=== PATIENT | male | born 1940 | race Caucasian/White ===

== ENCOUNTER 2021-01-02 16:02 | Outpatient (CLI) | payer MEDICARE, SELFPAY | END 2021-01-02 16:03 | disposition home or self-care (01) | LOC: ANHCOVIDVC 16:02 | PROVIDERS: PCP Family Medicine | DX: Z23 Encounter for immunization (principal) | CPT/HCPCS: 0001A; 91300 ==

== ENCOUNTER 2021-01-23 16:04 | Outpatient (CLI) | payer MEDICARE, SELFPAY | END 2021-01-23 16:05 | disposition home or self-care (01) | LOC: ANHCOVIDVC 16:04 | PROVIDERS: PCP Family Medicine | DX: Z23 Encounter for immunization (principal) | CPT/HCPCS: 0002A; 91300 ==

== ENCOUNTER → 2022-07-09 10:40 | Outpatient (CLI) | payer MEDICARE, SELFPAY ==
--- NOTE | ~2022-07-09 | XR_ITS ---
XR lumbar spine min 4V DATE: 07/09/2022 10:55 INDICATION: Low back pain TECHNIQUE: AP, lateral, coned lateral lumbosacral and bilateral oblique views COMPARISON: None FINDINGS: There is multi-level degenerative disc disease, mild at L1-2, moderately severe at L2-3, L3 -4 and L4-5. L5-S1 disc space is well preserved. There is degenerative change at the apophyseal joints. No fracture or spondylolisthesis or bone destruction. The pedicles and sacroiliac joints are intact. Surgical clips, right upper quadrant, consistent with cholelithiasis. IMPRESSION: Lumbar spondylosis Reviewed, dictated and finalized at location B. IMPRESSION: Lumbar spondylosis
== END ==
PROVIDERS: PCP Family Medicine; Visit Provider Family Medicine
DX: M47.817 Spondylosis without myelopathy or radiculopathy, lumbosacral region (principal); E78.5 Hyperlipidemia, unspecified; I10 Essential (primary) hypertension; E53.8 Deficiency of other specified B group vitamins
CPT/HCPCS: 72110

== ENCOUNTER 2022-07-10 08:06 | Outpatient (CLI) | payer MEDICARE, SELFPAY ==
[2022-07-10 20:03] LABS: Basophils Absolute Auto 0.1 K/mm3 (0.0-0.1); Basophils Percent Auto 0.7 % (0.2-1.2); Eosinophils Absolute Auto 0.3 K/mm3 (0-0.3); Eosinophils Percent Auto 3.3 % (0-4.4); Hematocrit 52.9 % (42.0-52.0); Hemoglobin 16.7 g/dL (14.0-18.0); Immature Granulocyte Absolute 0.08 K/mm3 (0.00-0.031); Immature Granulocyte Percent A 0.8 % (0-0.5); Lymphocytes Absolute Auto 2.57 K/mm3 (0.9-3.2); Lymphocytes Percent Auto 26.3 % (18.3-44.2); Mean Corpuscular HGB Conc 31.6 g/dl (32-36); Mean Corpuscular Hemoglobin 31.4 pg (26-34); Mean Corpuscular Volume 99.4 fl (80-100); Mean Platelet Volume 10.3 fl (7.4-10.4); Monocytes Absolute Auto 0.9 K/mm3 (0.1-0.6); Monocytes Percent Auto 8.7 % (2.6-8.5); Neutrophils Absolute Auto 5.9 K/mm3 (1.3-6.7); Neutrophils Percent Auto 60.2 % (45.5-73.1); Platelet Count Result 257 k/mm3 (150-375); Red Blood Count 5.32 M/mm3 (4.6-6.20); White Blood Count 9.8 K/mm3 (4.5-10.0)
[2022-07-10 20:17] LABS: Hemoglobin A1C 5.6 % (<5.7)
[2022-07-10 20:18] LABS: Alanine Aminotransferase 21 U/L (6-50); Albumin Level 4.2 g/dL (3.5-5.1); Alkaline Phosphatase 81 U/L (38-126); Anion Gap 10 mmol/L (8-16); Aspartate Amino Transferase 56 U/L (17-59); Bilirubin,Total 0.8 mg/dL (0.2-1.3); Blood Urea Nitrogen 25 mg/dL (9-20); Calcium 9.1 mg/dL (8.4-10.2); Carbon Dioxide 30 mmol/L (22-30); Chloride 103 mmol/L (98-107); Cholesterol 153 mg/dL (0-200); Estimated Glomerular Filt Rate > 60; Glucose 93 mg/dL (65-110); HDL Direct 27 mg/dL; Potassium 4.5 mmol/L (3.4-5.0); Sodium 143 mmol/L (137-145); Triglycerides 177 mg/dL (<150)
[2022-07-10 20:29] LABS: LDL Cholesterol Direct 93 mg/dL
[2022-07-10 20:41] LABS: Vitamin D 25 Hydroxy 29.6 ng/mL
[2022-07-10 21:04] LABS: Prostate Specific Antigen 3.5 ng/mL (< OR = 4.0)
== END 2022-07-10 08:07 | disposition home or self-care (01) ==
LOC: ANHGOSHLAB 08:10
PROVIDERS: PCP Family Medicine; Visit Provider Family Medicine
DX: Z12.5 Encounter for screening for malignant neoplasm of prostate (principal); E78.5 Hyperlipidemia, unspecified; E53.8 Deficiency of other specified B group vitamins; I10 Essential (primary) hypertension; R73.9 Hyperglycemia, unspecified; E55.9 Vitamin D deficiency, unspecified; Z00.00 Encounter for general adult medical examination without abnormal findings
CPT/HCPCS: 36415; 80053; 80061; 82306; 82607; 83036; 84153; 84443; 85025; G0103

== ENCOUNTER 2022-12-11 11:02 | Outpatient (RCR) | payer MEDICARE, SELFPAY | END 2022-12-11 11:04 | disposition home or self-care (01) | LOC: ANHGOSHPT 11:02 | PROVIDERS: PCP Family Medicine; Visit Provider Family Medicine | DX: M54.50 Low back pain, unspecified (principal); G89.29 Other chronic pain | CPT/HCPCS: 99199 ==

== ENCOUNTER 2023-01-07 10:08 | Outpatient (CLI) | payer MEDICARE, SELFPAY ==
[2023-01-07 18:50] LABS: Basophils Absolute Auto 0.1 K/mm3 (0.0-0.1); Basophils Percent Auto 0.6 % (0.2-1.2); Eosinophils Absolute Auto 0.3 K/mm3 (0-0.3); Eosinophils Percent Auto 3.1 % (0-4.4); Hematocrit 51.9 % (42.0-52.0); Hemoglobin 16.6 g/dL (14.0-18.0); Immature Granulocyte Absolute 0.11 K/mm3 (0.00-0.031); Lymphocytes Absolute Auto 3.48 K/mm3 (0.9-3.2); Lymphocytes Percent Auto 31.8 % (18.3-44.2); Mean Corpuscular Hemoglobin 31.4 pg (26-34); Mean Corpuscular Volume 98.1 fl (80-100); Mean Platelet Volume 9.7 fl (7.4-10.4); Monocytes Absolute Auto 0.9 K/mm3 (0.1-0.6); Monocytes Percent Auto 8.3 % (2.6-8.5); Neutrophils Percent Auto 55.2 % (45.5-73.1); Platelet Count Result 282 k/mm3 (150-375); Red Blood Count 5.29 M/mm3 (4.6-6.20); Red Cell Distribution Width 13.5 % (11.5-14.5); White Blood Count 10.9 K/mm3 (4.5-10.0)
[2023-01-07 19:03] LABS: Chloride 105 mmol/L (98-107)
[2023-01-07 19:07] LABS: Alanine Aminotransferase 21 U/L (6-50); Albumin Level 4.4 g/dL (3.5-5.1); Alkaline Phosphatase 81 U/L (38-126); Anion Gap 8 mmol/L (8-16); Aspartate Amino Transferase 23 U/L (17-59); Bilirubin,Total 0.5 mg/dL (0.2-1.3); Blood Urea Nitrogen 29 mg/dL (9-20); Calcium 9.6 mg/dL (8.4-10.2); Carbon Dioxide 30 mmol/L (22-30); Cholesterol 162 mg/dL (0-200); Estimated Glomerular Filt Rate > 60; Glucose 85 mg/dL (65-110); HDL Direct 29 mg/dL; Potassium 4.1 mmol/L (3.4-5.0); Sodium 143 mmol/L (137-145); Triglycerides 168 mg/dL (<150)
[2023-01-07 19:15] LABS: LDL Cholesterol Direct 97 mg/dL
== END 2023-01-07 10:09 | disposition home or self-care (01) ==
LOC: ANHGOSHLAB 10:10
PROVIDERS: PCP Family Medicine; Visit Provider Nurse Practitioner Family
DX: E78.5 Hyperlipidemia, unspecified (principal); I10 Essential (primary) hypertension
CPT/HCPCS: 36415; 80053; 80061; 85025

== ENCOUNTER 2023-04-18 07:52 | Outpatient (CLI) | payer MEDICARE, SELFPAY ==
[2023-04-18 08:35] LABS: Anion Gap 7 mmol/L (8-16); Blood Urea Nitrogen 26 mg/dL (9-20); Calcium 8.7 mg/dL (8.4-10.2); Carbon Dioxide 30 mmol/L (22-30); Chloride 104 mmol/L (98-107); Estimated Glomerular Filt Rate > 60; Glucose 119 mg/dL (65-110); Potassium 3.9 mmol/L (3.4-5.0); Sodium 141 mmol/L (137-145)
== END 2023-04-18 07:53 | disposition home or self-care (01) ==
PROVIDERS: Anesthesiology; PCP Family Medicine; Visit Provider Plastic Surgery
DX: Z01.812 Encounter for preprocedural laboratory examination (principal); I10 Essential (primary) hypertension
CPT/HCPCS: 36415; 80048

== ENCOUNTER 2023-04-24 03:28 | Day surgery (SDC) | payer MEDICARE, SELFPAY ==
--- NOTE | 2023-04-16 10:00 | PC.NURSE ---
Report to the Outpatient Waiting Room, entrance under the green pavilion located off [facility], at time _0600 on date _04/24/23 . Planned Procedure Time: _0730 . Time changes happen often and if your time is changed the preop area will call you the afternoon before. - You and your visitor will be asked to self-screen and do not enter if you have any COVID symptoms. - A mask is optional within the hospital at this time. Patients may have clear liquids (water, carbonated beverages, clear teas, apple juice) until 3 hours prior to surgery with a maximum of 20 ounces. - No food from midnight until time of surgery - Infants may have breast milk until 4 hours before surgery, formula 6 hours prior to surgery. - Children will be allowed to drink immediately following surgery. If applicable, please bring a bottle or sippy cup to assist with drinking. Juice, water, soda, and popsicles are readily available. For infants on formula, please bring formula the day of surgery. Pacifiers are allowed. Take the following medications with a SIP of water the morning of surgery: ____AMLODIPINE DO NOT STOP ANY OF YOUR OTHER PRESCRIPTION MEDICATIONS PRIOR TO SURGERY ?EXCEPT THE FOLLOWING Medications to discontinue per physician ____MULTIVITAMIN HOLD 3 DAYS PRE OP 04/21/23 Please no make-up, nail djiboutian, hairspray, perfume, deodorant, or body powder the day of surgery. No jewelry (including any body piercings) or valuables the day of surgery, leave them at home. Please take a shower or bath the night before, or the morning of, surgery with an antibacterial soap. Wear comfortable, loose fitting clothing. Children are encouraged to wear pajamas. - Jewelry must be removed prior to entering the operating room. Rings and piercings that are not removed may be cut off. - The hospital will not accept responsibility for valuables. - Please leave all valuables, including medications, at home the day of surgery. If you are going home after surgery, a licensed transit mixer driver must drive you home. - NO public transportation without another adult if you receive anesthesia. - We recommend that an adult stay with you for 24 hours following discharge. - We also recommend that you do not drive, make important decision, drink alcoholic beverages, or take any drugs that were not prescribed by your health care provider for at least 24 hours after your discharge time. For Pediatric surgeries, we recommend two adults accompany the child home. Follow any additional instructions given to you from your surgeon. If you or anyone in your household have experienced Covid symptoms in the past week, please notify your surgeon or the nurse liaison at the phone number below for possible testing. Telephone instructions given to __PT'S MILES and asked if any additional questions and then verbalized understanding. Patient advised to call surgeon office or pre surgery nurse liaison [phone] if any additional questions.
[2023-04-16 10:06] VITALS: BMI 34.0
[2023-04-24 06:00] VITALS: BP 141/69; PULSE 71; RESP 18; TEMP 36.3; O2SAT 95
[2023-04-24] MEDS: LACTATED RINGERS 1,000 ML 30 ML IV CONT (06:35)
--- NOTE | 2023-04-24 07:09 | WPDANESEPPF ---
Anes - Initial Pre Proc Eval Procedure: Operation Date: 04/24/23 07:30 Proposed Procedures p Excision of Ulcerated Neoplasm Right Auricular Sulcus with Frozen Section, Possible Full Thickness Skin Graft - Elías Nelson MD Date/Time: 04/24/23 07:09 Surgeon: Elías Nelson MD Pre Op Diagnosis: Ulc Neoplasm Rt Auricular Sulcus Patient Data Age: 83 Gender: M Height: 1.75 m Weight: 104.35 kg Last Vital Signs Temp 97.3 F L 04/24/23 06:00 Pulse 71 04/24/23 06:00 Resp 18 04/24/23 06:00 BP 141/69 H 04/24/23 06:00 Pulse Ox 95 04/24/23 06:00 O2 Del Method Room Air 04/24/23 06:00 Allergies Allergy/AdvReac Type Severity Reaction Status Date / Time No Known Allergies Allergy Unknown Verified 04/24/23 06:00 Home Medications Medication Instructions Recorded Confirmed Type multivitamin 1 tablet PO DAILY 01/01/22 04/16/23 History enalapril 10 1 tablet PO DAILY #180 tabs 05/27/22 04/16/23 Rx mg-hydrochlorothiazide 25 mg tablet simvastatin 40 mg tablet 40 mg PO QHS #100 tabs 09/02/22 04/16/23 Rx amlodipine 5 mg tablet 5 mg PO DAILY #90 tabs 03/31/23 04/16/23 Rx Patient hx anesthesia problems: none Family hx anesthesia problems: none Results Review: All pre-operative results and documents have been reviewed as part of the pre-operative evaluation. [facility] Past Medical History Medical History BPH w/o urinary obs/LUTS Chronic low back pain Dyslipidemia Essential (primary) hypertension Melanoma of left restorationism (~2010) UGI bleed (~2001) Surgical History Surgical History History of cholecystectomy (~2014) 08/2015 History of incisional hernia repair 01/2017 Family History Family History Mother Patient's mother is in good health Father Patient's father is in good health Other Family history of hypercholesterolemia Hypertension Social History Social History (Updated 01/07/23 @ 09:10 by Soo Hitchcock MA) Smoking packs per day: 1 Smoking cigarettes per day: 20.0 Years smoked: 62 Smoking pack-years: 62.00 Smoking status: Former smoker Tobacco type: cigarettes Second hand tobacco smoke exposure: No Smoking end date: 10/20/17 Alcohol intake: current Alcohol use details: consumes 1 beer rarely Substance use: never Substance use type: does not use Lack of Transportation: No Lack of Food: Never True Current Housing: I Have Housing Concerned About Future Housing: No Difficulty Paying Gas/Electric Bills: No Difficulty Paying for Meds: No Currently Unemployed: No Difficulty w/ Childcare or Family Care: No Living arrangements: with family Occupation/Education: retired Gender identity (if verbalized by the patient): Male Sexual Orientation (if Verbalized by the Patient): Straight or Heterosexual Spiritual care concerns: No Agree to blood products: Yes Anes - Eval Final PreProcedure Day of Procedure 04/24/23 07:09 Patient weight: obese Heart: regular rate and rhythm Lungs: clear to auscultation Airway: Mallampati scale class III Neurological: alert and oriented Last oral intake: >/= 8 hours ASA classification: III Emergent: no Anesthetic plan: proceed Anesthesia type and monitoring: general GIVS and standard monitoring Results Review: All pre-operative results and documents have been reviewed as part of the pre-operative evaluation. Informed Consent: The patient's anesthetic plan and its attendant risks and benefits were discussed with the patient/family/POA. Questions were solicited and answers provided to the satisfaction of the patient/family/POA.
--- NOTE | 2023-04-24 07:11 | WPDHPUPDATE1 ---
History and Physical Update Update Date/Time: 04/24/23 07:11 History and Physical has been reviewed, including an updated exam of the patient. There are NO changes in the patient's condition. Risks, benefits, and alternatives have been discussed and questions answered. Patient agrees to proceed with procedure.
[2023-04-24] MEDS: ceFAZolin SODIUM 1 GM VIAL 2 GM IV PUSH (08:17)
[2023-04-24] MEDS: LIDO 1%/EPINEPHRINE/PF 1:200,000 30 ML VIAL 12 ML XX (08:20)
[2023-04-24 08:55] VITALS: BP 100/78; PULSE 68; RESP 16; TEMP 36.4; O2SAT 95
[2023-04-24 09:25] VITALS: BP 125/53
--- NOTE | 2023-04-24 09:38 | P.OP_ITS ---
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 He was taken to the operating room and placed supine on the operating table. He was given IV sedation with the oxygen mask. Right face and neck were prepped and draped in usual fashion. The right thigh was also prepped in anticipation of a full-thickness graft. Area was carefully examined and infiltrated 1% lidocaine with epinephrine. The incision was made around the ulcerated mass and extended to include some of the underlying cartilage. The ulcerated tissue extended down to the perichondrium. [place] and antihelix cartilage was spared. The specimen was tagged at its 12:00 o'clock most superior aspect with a suture and sent for frozen section. The pathologist revealed the presence of a basal cell carcinoma margins free. Due to the floppy nature of his ears to begin with and the reduced cartilage support I elected to close the wound directly by suturing the wound margins side to side. This preserved the dimensions and appearance of the ear. It did reduce his auricular sulcus but the patient is not generally were glasses. It appears he would be able to support glasses on this ear if needed. The space was closed with through and through 4-0 nylon quilting stitches at several sites across the region of the antihelix. There was no bleeding at the termination of the case an ear cup was applied. The patient had been given 2 g of Ancef at the start of the case. The is discharged home with instructions in wound care and follow-up. He has a prescription for cephalexin 500 mg t.i.d. for 5 days and hydrocodone 5/325 number 6. Estimated Blood Loss 5 Drains No Packing No Pathology Yes Complications No immediate complications Condition Stable Disposition Same day
== END 2023-04-24 09:56 | disposition home or self-care (01) ==
PROVIDERS: PCP Family Medicine; Visit Provider Plastic Surgery
PROC: (CPT 11646; principal; 2023-04-24 07:30)
DX: C44.212 Basal cell carcinoma of skin of right ear and external auricular canal (principal); I10 Essential (primary) hypertension; E78.5 Hyperlipidemia, unspecified; N40.0 Benign prostatic hyperplasia without lower urinary tract symptoms; Z87.891 Personal history of nicotine dependence; E66.9 Obesity, unspecified; Z68.34 Body mass index [BMI] 34.0-34.9, adult
CPT/HCPCS: 11646; 12053; 36415; 80048; 88305; 88331; A9270; J0690; J2704; J7120

== ENCOUNTER 2023-07-29 08:07 | Outpatient (CLI) | payer MEDICARE, SELFPAY ==
[2023-07-29 18:42] LABS: Alanine Aminotransferase 24 U/L (6-50); Albumin Level 4.1 g/dL (3.5-5.1); Alkaline Phosphatase 73 U/L (38-126); Anion Gap 4 mmol/L (8-16); Aspartate Amino Transferase 59 U/L (17-59); Bilirubin,Total 0.6 mg/dL (0.2-1.3); Blood Urea Nitrogen 34 mg/dL (9-20); Calcium 9.2 mg/dL (8.4-10.2); Carbon Dioxide 34 mmol/L (22-30); Chloride 104 mmol/L (98-107); Cholesterol 159 mg/dL (0-200); Estimated Glomerular Filt Rate > 60; Glucose 96 mg/dL (65-110); HDL Direct 28 mg/dL; Potassium 4.5 mmol/L (3.4-5.0); Sodium 142 mmol/L (137-145); Triglycerides 128 mg/dL (<150)
[2023-07-29 18:53] LABS: LDL Cholesterol Direct 97 mg/dL
[2023-07-29 19:10] LABS: Prostate Specific Antigen 3.4 ng/mL (< OR = 4.0)
[2023-07-29 19:39] LABS: Basophils Absolute Auto 0.1 K/mm3 (0.0-0.1); Basophils Percent Auto 0.8 % (0.2-1.2); Eosinophils Absolute Auto 0.4 K/mm3 (0-0.3); Eosinophils Percent Auto 3.3 % (0-4.4); Hematocrit 49.8 % (42.0-52.0); Hemoglobin 16.1 g/dL (14.0-18.0); Immature Granulocyte Absolute 0.11 K/mm3 (0.00-0.031); Lymphocytes Absolute Auto 3.97 K/mm3 (0.9-3.2); Lymphocytes Percent Auto 34.9 % (18.3-44.2); Mean Corpuscular HGB Conc 32.3 g/dl (32-36); Mean Corpuscular Hemoglobin 32.1 pg (26-34); Mean Corpuscular Volume 99.2 fl (80-100); Mean Platelet Volume 9.5 fl (7.4-10.4); Monocytes Absolute Auto 0.9 K/mm3 (0.1-0.6); Monocytes Percent Auto 7.5 % (2.6-8.5); Neutrophils Percent Auto 52.5 % (45.5-73.1); Platelet Count Result 275 k/mm3 (150-375); Red Blood Count 5.02 M/mm3 (4.6-6.20); Red Cell Distribution Width 13.7 % (11.5-14.5); White Blood Count 11.4 K/mm3 (4.5-10.0)
[2023-07-29 19:44] LABS: Vitamin D 25 Hydroxy 39.6 ng/mL
== END 2023-07-29 08:08 | disposition home or self-care (01) ==
PROVIDERS: PCP Family Medicine; Visit Provider Family Medicine
DX: I10 Essential (primary) hypertension (principal); E55.9 Vitamin D deficiency, unspecified; Z12.5 Encounter for screening for malignant neoplasm of prostate; E53.8 Deficiency of other specified B group vitamins; Z00.00 Encounter for general adult medical examination without abnormal findings; E78.5 Hyperlipidemia, unspecified
CPT/HCPCS: 36415; 80053; 80061; 82306; 82607; 84153; 84443; 85025; G0103

== ENCOUNTER 2023-08-06 01:20 | Day surgery (SDC) | payer MEDICARE, SELFPAY ==
--- NOTE | 2023-07-28 09:23 | PC.NURSE ---
Report to the Outpatient Waiting Room, entrance under the green pavilion located off [facility], at time _0600 on date __08/06/23 . Planned Procedure Time: __0730 . Time changes happen often and if your time is changed the preop area will call you the afternoon before. - You and your visitor will be asked to self-screen and do not enter if you have any COVID symptoms. - A mask is optional within the hospital at this time. Patients may have clear liquids (water, carbonated beverages, clear teas, apple juice) until 3 hours prior to surgery with a maximum of 20 ounces. - No food from midnight until time of surgery - Infants may have breast milk until 4 hours before surgery, infant formula 6 hours prior to surgery. - Children will be allowed to drink immediately following surgery. If applicable, please bring a bottle or sippy cup to assist with drinking. Juice, water, soda, and popsicles are readily available. For infants on formula, please bring formula the day of surgery. Pacifiers are allowed. Take the following medications with a SIP of water the morning of surgery: ____AMLODIPINE DO NOT STOP ANY OF YOUR OTHER PRESCRIPTION MEDICATIONS PRIOR TO SURGERY ?EXCEPT THE FOLLOWING Medications to discontinue per physician __ALL VITAMINS AND SUPPLEMENTS 3 DAYS PRE OP.LAST DOSE 08/02/23 Please no make-up, nail malay, hairspray, perfume, deodorant, or body powder the day of surgery. No jewelry (including any body piercings) or valuables the day of surgery, leave them at home. Please take a shower or bath the night before, or the morning of, surgery with an antibacterial soap. Wear comfortable, loose fitting clothing. Children are encouraged to wear pajamas. - Jewelry must be removed prior to entering the operating room. Rings and piercings that are not removed may be cut off. - The hospital will not accept responsibility for valuables. - Please leave all valuables, including medications, at home the day of surgery. If you are going home after surgery, a licensed xm1 tank driver must drive you home. - NO public transportation without another adult if you receive anesthesia. - We recommend that an adult stay with you for 24 hours following discharge. - We also recommend that you do not drive, make important decision, drink alcoholic beverages, or take any drugs that were not prescribed by your health care provider for at least 24 hours after your discharge time. For Pediatric surgeries, we recommend two adults accompany the child home. Follow any additional instructions given to you from your surgeon. If you or anyone in your household have experienced Covid symptoms in the past week, please notify your surgeon or the nurse liaison at the phone number below for possible testing. Telephone instructions given to __SPOUSE HELEN and asked if any additional questions and then verbalized understanding. Patient advised to call surgeon office or pre surgery nurse liaison [phone] if any additional questions.
[2023-07-28 09:31] VITALS: BMI 34.2
[2023-08-06] MEDS: LACTATED RINGERS 1,000 ML 30 ML IV CONT (07:00)
--- NOTE | 2023-08-06 07:07 | WPDANESEPPF ---
Anes - Initial Pre Proc Eval Procedure: Operation Date: 08/06/23 07:30 Proposed Procedures p Excision Neoplasm Unspecified Behavior Right Nose with Frozen Section, Possible Local Tissue Transfer or Full Thickness Skin Graft - Elías Nelson MD Date/Time: 08/06/23 07:07 Surgeon: Elías Nelson MD Pre Op Diagnosis: neopl unspec behavior right nose Patient Data Age: 83 Gender: M Height: 1.73 m Weight: 102.1 kg Allergies Allergy/AdvReac Type Severity Reaction Status Date / Time No Known Allergies Allergy Unknown Verified 07/28/23 09:16 Home Medications Medication Instructions Recorded Confirmed Type multivitamin 1 tablet PO DAILY 01/01/22 07/28/23 History amlodipine 5 mg tablet 5 mg PO DAILY #90 tabs 03/31/23 07/28/23 Rx enalapril 10 1 tablet PO DAILY #90 tabs 05/13/23 07/28/23 Rx mg-hydrochlorothiazide 25 mg tablet simvastatin 40 mg tablet 40 mg PO QHS #100 tabs 06/10/23 07/28/23 Rx glucosamine sulfate 1,000 mg 1,000 mg PO DAILY 07/15/23 07/28/23 History capsule tumeric 100 mg-livier 150 mg-olive 1 cap PO DAILY 07/15/23 07/28/23 History 50 mg-oreg 150 mg-caprylate capsule sodium,potassium,mag sulfates 17.5 See Rx Instructions PO .COMPLEX 07/30/23 Rx gram-3.13 gram-1.6 gram oral soln #354 mL (Suprep Bowel Prep Kit) Patient hx anesthesia problems: none Family hx anesthesia problems: none Results Review: All pre-operative results and documents have been reviewed as part of the pre-operative evaluation. [facility] Past Medical History Medical History BPH w/o urinary obs/LUTS Chronic low back pain Chronic venous insufficiency of lower extremity Dyslipidemia Essential (primary) hypertension Melanoma of left yazidism (~2010) UGI bleed (~2001) Vitamin D deficiency Surgical History Surgical History History of basal cell carcinoma excision (~04/24/23) excision of basal cell carcinoma of the right auricular sulcus History of cholecystectomy (~2014) 08/2015 History of incisional hernia repair 01/2017 Family History Family History Mother Patient's mother is in good health Father Patient's father is in good health Other Family history of hypercholesterolemia Hypertension Social History Social History Smoking packs per day: 1 Smoking cigarettes per day: 20.0 Years smoked: 62 Smoking pack-years: 62.00 Smoking status: Former smoker Tobacco type: cigarettes Second hand tobacco smoke exposure: No Smoking end date: 10/20/14 Alcohol intake: current Alcohol use details: ONE DRINK PER MONTH Substance use: never Substance use type: does not use Lack of Transportation: No Lack of Food: Never True Current Housing: I Have Housing Concerned About Future Housing: No Difficulty Paying Gas/Electric Bills: No Difficulty Paying for Meds: No Currently Unemployed: No Difficulty w/ Childcare or Family Care: No Living arrangements: with family Occupation/Education: retired Gender identity (if verbalized by the patient): Male Sexual Orientation (if Verbalized by the Patient): Straight or Heterosexual Spiritual care concerns: No Agree to blood products: Yes Anes - Eval Final PreProcedure Day of Procedure 08/06/23 07:07 Patient weight: obese Heart: regular rate and rhythm Lungs: clear to auscultation Airway: Mallampati scale class II Neurological: alert and oriented Last oral intake: >/= 8 hours ASA classification: III Emergent: no Anesthetic plan: proceed Anesthesia type and monitoring: general GIVS and standard monitoring Results Review: All pre-operative results and documents have been reviewed as part of the pre-operative evaluation. Informed Consent: The patient's anesthetic kimberley
--- NOTE | 2023-08-06 07:13 | WPDHPUPDATE1 ---
History and Physical Update Update Date/Time: 08/06/23 07:13 History and Physical has been reviewed, including an updated exam of the patient. There are NO changes in the patient's condition. Risks, benefits, and alternatives have been discussed and questions answered. Patient agrees to proceed with procedure.
[2023-08-06 07:25] VITALS: BP 147/58; PULSE 76; RESP 14; TEMP 36.3; O2SAT 94
[2023-08-06] MEDS: LIDO 1%/EPINEPHRINE 1:100,000 50 ML VIAL 8 ML INFILTRATE (07:30)
[2023-08-06] MEDS: BACITRACIN OINTMENT 15 GM TUBE 1 APPLIC TOPICAL (07:30)
[2023-08-06] MEDS: ceFAZolin 2 GM/D5W 50 ML 2 GM/50 ML BAG IVPB (07:30)
[2023-08-06 09:06] VITALS: BP 127/64; PULSE 69; RESP 14; O2SAT 100
[2023-08-06 09:20] VITALS: BP 146/69; PULSE 73; RESP 14; O2SAT 100
--- NOTE | 2023-08-06 09:32 | W.PM.PROC2 ---
Procedure Note - Detailed Date of Procedure 08/06/23 Pre-op Diagnosis neopl unspec behavior right nose Post-op Diagnosis Other (BCC or right side of nose at the ala. Neoplasm of unspecified behavior R anterior cheek.) Procedure Performed 1 cm excision of basal cell carcinoma of the right nasal ala with frozen section and local tissue transfer 40 sq cm. 1 cm excision of neoplasm of the right anterior cheek with simple repair 1.5 cm Surgeon Elías Nelson MD Anesthesia MAC Description of Procedure The ulcerated lucent neoplasm of the right nasal ala was marked on the patient with his consent in the holding area. His asked if I could just take off everything else on his face. I did look at a site on the right anterior cheek which was red, ulcerated and approximately 4 mm in diameter. The patient couldn't recall how long it had been there. I thought it seemed inflammatory we would leave it alone. The patient was then taken to the operating room placed supine on the operating table. He was given sedation anesthesia with an LMA.. The entire face and upper chest were prepped and draped in the usual fashion. The time-out was held and confirmed. The neoplasm on the right nasal ala was carefully marked with a pen for excision. This area was widely infiltrated with 1% lidocaine with epinephrine. The full-thickness skin ellipse was incised down to include a thin layer of fat. It was then carefully taken off at that level which did not expose ala cartilage. A suture was placed at the most inferior margin near the ala rim for to orient the pathologist. It was sent for frozen section. The pathologist reported the diagnosis of basal cell carcinoma with all margins free. In the interim, while awaiting this report, I examined the lesion on the right and to cheek and this had the appearance of being a basal cell carcinoma under are bright lights and under loupe magnification and had a sign the elevation to a and ulceration. We elected to go ahead to excise this. Was initially closed with simple 5 0 nylon. The stitches were eventually removed as the site fell into the region of local tissue transfer for the lesion on the nose.. A superiorly based triangular flap was incised and elevated. To allow satisfactory rotation of that flap a 2nd opposing triangular flap was elevated. The 2nd flap made use of the prior incision where the neoplasm of unspecified behavior was removed. The smaller specimen was sent for permanent section. The local tissue transfer was adequately undermined and rotated and inset. The skin was closed with interrupted 5 0 nylon. There was no significant distortion of the lower lid or the nasal ala. the patient was discharged from the operating room in stable condition. Prescriptions are being sent for cephalexin 15. And tramadol 10.. has instructions in wound care and follow-up. Estimated Blood Loss 10 Drains No Packing No Pathology Yes Complications No immediate complications Condition Stable Disposition PACU
[2023-08-06 09:45] VITALS: BP 132/60; PULSE 72; RESP 16; O2SAT 98
[2023-08-06 10:06] VITALS: BP 139/55; PULSE 71; RESP 16
== END 2023-08-06 10:17 | disposition home or self-care (01) ==
PROVIDERS: PCP Family Medicine; Visit Provider Plastic Surgery
PROC: (CPT 14060; principal; 2023-08-06 07:30)
DX: C44.311 Basal cell carcinoma of skin of nose (principal); C44.319 Basal cell carcinoma of skin of other parts of face; I10 Essential (primary) hypertension; E78.5 Hyperlipidemia, unspecified; E55.9 Vitamin D deficiency, unspecified; N40.0 Benign prostatic hyperplasia without lower urinary tract symptoms; M54.9 Dorsalgia, unspecified; G89.29 Other chronic pain; Z87.891 Personal history of nicotine dependence; E66.9 Obesity, unspecified; Z68.34 Body mass index [BMI] 34.0-34.9, adult
CPT/HCPCS: 14060; 11641; 88305; 88331; A9270; J0690; J2371; J2405; J2704; J3010; J7120

== ENCOUNTER 2023-10-02 05:50 | Day surgery (SDC) | payer MEDICARE, SELFPAY ==
[2023-07-30 11:16] VITALS: BMI 34.2
[2023-10-02 06:15] VITALS: BP 146/59; PULSE 88; RESP 16; TEMP 36.4; O2SAT 96
[2023-10-02] MEDS: LACTATED RINGERS 1,000 ML 150 ML IV CONT (06:27)
--- NOTE | 2023-10-02 07:19 | WPDANESEPPF ---
Anes - Initial Pre Proc Eval Procedure: Operation Date: 10/02/23 07:30 Proposed Procedures p Diagnostic Colonoscopy - Jerry Kam MD Date/Time: 10/02/23 07:19 Surgeon: Jerry Kam MD Pre Op Diagnosis: Other Fecal Abnormalities Patient Data Age: 83 Gender: M Height: 1.73 m Weight: 104.3 kg Last Vital Signs Temp 36.4 C 10/02/23 06:15 Pulse 88 10/02/23 06:15 Resp 16 10/02/23 06:15 BP 146/59 H 10/02/23 06:15 Pulse Ox 96 10/02/23 06:15 O2 Del Method Room Air 10/02/23 06:15 Allergies Allergy/AdvReac Type Severity Reaction Status Date / Time No Known Allergies Allergy Unknown Verified 10/02/23 06:17 Home Medications Medication Instructions Recorded Confirmed Type multivitamin 1 tablet PO DAILY 01/01/22 10/02/23 History amlodipine 5 mg tablet 5 mg PO DAILY #90 tabs 03/31/23 10/02/23 Rx enalapril 10 1 tablet PO DAILY #90 tabs 05/13/23 10/02/23 Rx mg-hydrochlorothiazide 25 mg tablet simvastatin 40 mg tablet 40 mg PO QHS #100 tabs 06/10/23 10/02/23 Rx glucosamine sulfate 1,000 mg 1,000 mg PO DAILY 07/15/23 10/02/23 History capsule tumeric 100 mg-livier 150 mg-olive 1 cap PO DAILY 07/15/23 10/02/23 History 50 mg-oreg 150 mg-caprylate capsule tramadol 50 mg tablet 50 - 100 mg PO Q6H PRN pain #10 08/06/23 10/02/23 Rx tabs Patient hx anesthesia problems: none Family hx anesthesia problems: none Results Review: All pre-operative results and documents have been reviewed as part of the pre-operative evaluation. [facility] Past Medical History Medical History BPH w/o urinary obs/LUTS Chronic low back pain Chronic venous insufficiency of lower extremity Dyslipidemia Essential (primary) hypertension Melanoma of left adventist (~2010) UGI bleed (~2001) Vitamin D deficiency Surgical History Surgical History History of basal cell carcinoma excision (~04/24/23) excision of basal cell carcinoma of the right auricular sulcus History of cholecystectomy (~2014) 08/2015 History of incisional hernia repair 01/2017 Family History Family History Mother Patient's mother is in good health Father Patient's father is in good health Other Family history of hypercholesterolemia Hypertension Social History Social History Smoking packs per day: 1 Smoking cigarettes per day: 20.0 Years smoked: 62 Smoking pack-years: 62.00 Smoking status: Former smoker Tobacco type: cigarettes Second hand tobacco smoke exposure: No Smoking end date: 10/20/14 Additional smoking assessment comments: quit 5 years ago Alcohol intake: current Alcohol use details: ONE DRINK PER MONTH Substance use: never Substance use type: does not use Lack of Transportation: No Lack of Food: Never True Current Housing: I Have Housing Concerned About Future Housing: No Difficulty Paying Gas/Electric Bills: No Difficulty Paying for Meds: No Currently Unemployed: No Difficulty w/ Childcare or Family Care: No Living arrangements: with family Occupation/Education: retired Gender identity (if verbalized by the patient): Male Sexual Orientation (if Verbalized by the Patient): Straight or Heterosexual Spiritual care concerns: No Agree to blood products: Yes Anes - Eval Final PreProcedure Day of Procedure 10/02/23 07:19 Patient weight: obese Heart: regular rate and rhythm Lungs: clear to auscultation Airway: Mallampati scale class II and other (edentulous) Neurological: alert and oriented Last oral intake: >/= 8 hours ASA classification: III Emergent: no Anesthetic plan: proceed Anesthesia type and monitoring: general GIVS and standard monitoring Results Review: All pre-operative results and documents have been revi
--- NOTE | 2023-10-02 07:29 | PM.HPGS ---
History of Present Illness History of Present Illness Consent: Risks, benefits, and alternatives have been discussed and questions answered. Patient agrees to proceed with procedure. Chief complaint: positive cologuard test Narrative: Justin Wilson is a 83 year old male Presents for screening colonoscopy. Patient found to have positive Cologuard test. Patient presents today for screening colonoscopy. The patient reports that his current weight appetite and bowel movements are normal. Patient denies abdominal pain. Family history is noncontributory. Review of Systems Review of Systems: Review of Systems noncontributory. [facility] Past Medical History Medical History BPH w/o urinary obs/LUTS Chronic low back pain Chronic venous insufficiency of lower extremity Dyslipidemia Essential (primary) hypertension Melanoma of left voodoo (~2010) UGI bleed (~2001) Vitamin D deficiency Surgical History Surgical History History of basal cell carcinoma excision (~04/24/23) excision of basal cell carcinoma of the right auricular sulcus History of cholecystectomy (~2014) 08/2015 History of incisional hernia repair 01/2017 Family History Family History Mother Patient's mother is in good health Father Patient's father is in good health Other Family history of hypercholesterolemia Hypertension Social History Social History Smoking packs per day: 1 Smoking cigarettes per day: 20.0 Years smoked: 62 Smoking pack-years: 62.00 Smoking status: Former smoker Tobacco type: cigarettes Second hand tobacco smoke exposure: No Smoking end date: 10/20/14 Additional smoking assessment comments: quit 5 years ago Alcohol intake: current Alcohol use details: ONE DRINK PER MONTH Substance use: never Substance use type: does not use Lack of Transportation: No Lack of Food: Never True Current Housing: I Have Housing Concerned About Future Housing: No Difficulty Paying Gas/Electric Bills: No Difficulty Paying for Meds: No Currently Unemployed: No Difficulty w/ Childcare or Family Care: No Living arrangements: with family Occupation/Education: retired Gender identity (if verbalized by the patient): Male Sexual Orientation (if Verbalized by the Patient): Straight or Heterosexual Spiritual care concerns: No Agree to blood products: Yes Meds Home Medications and Allergies Home Medications Medication Instructions Recorded Confirmed Type multivitamin 1 tablet PO DAILY 01/01/22 10/02/23 History amlodipine 5 mg tablet 5 mg PO DAILY #90 tabs 03/31/23 10/02/23 Rx enalapril 10 1 tablet PO DAILY #90 tabs 05/13/23 10/02/23 Rx mg-hydrochlorothiazide 25 mg tablet simvastatin 40 mg tablet 40 mg PO QHS #100 tabs 06/10/23 10/02/23 Rx glucosamine sulfate 1,000 mg 1,000 mg PO DAILY 07/15/23 10/02/23 History capsule tumeric 100 mg-livier 150 mg-olive 1 cap PO DAILY 07/15/23 10/02/23 History 50 mg-oreg 150 mg-caprylate capsule tramadol 50 mg tablet 50 - 100 mg PO Q6H PRN pain #10 08/06/23 10/02/23 Rx tabs Allergies Allergy/AdvReac Type Severity Reaction Status Date / Time No Known Allergies Allergy Unknown Verified 10/02/23 06:17 Vital Signs Vital Signs - 24 hr 10/02/23 06:15 Temperature 97.6 F Pulse Rate 88 Respiratory Rate 16 Blood Pressure 146/59 H Pulse Oximetry 96 Oxygen Delivery Room Air Exam Narrative: physical exam reveals patient to be alert. Vital signs stable. HEENT exam is unremarkable. Patient is anicteric. Lungs are clear to auscultation and percussion. Heart is without murmur or extra sounds. Abdomen bowel sounds are present soft nontender , no hepatomegaly. Digital external rectal exam is n
[2023-10-02] MEDS: SIMETHICONE ORAL SUSPENSION 20 MG/0.3 ML 30 ML BOTTLE 0.6 ML IRRIGATION (07:47)
[2023-10-02 08:08] VITALS: BP 102/59; PULSE 71; RESP 16; O2SAT 94
[2023-10-02 08:18] VITALS: BP 110/62; PULSE 70; RESP 18; O2SAT 98
[2023-10-02 08:28] VITALS: BP 127/59; PULSE 71; RESP 20; O2SAT 98
--- NOTE | 2023-10-02 08:32 | WPDANESPN ---
Anes - Prog Note Post-Op Date/Time: 10/02/23 08:32 Cardiovascular status: normal Respiratory status: normal Airway patency: baseline Mental status: baseline Post-Op hydration status: normal Vital Signs: Last Vital Signs Temp 36.4 C 10/02/23 06:15 Pulse 88 10/02/23 06:15 Resp 16 10/02/23 06:15 BP 146/59 H 10/02/23 06:15 Pulse Ox 96 10/02/23 06:15 O2 Del Method Room Air 10/02/23 06:15 Pain Score (VAS): 0/10 I/O: Intake & Output 10/01/23 10/02/23 10/02/23 23:59 07:59 15:59 Intake Total 400 Balance 400 Patient Feedback: Patient satisfied with anesthetic care.
== END 2023-10-02 08:46 | disposition home or self-care (01) ==
PROVIDERS: PCP Family Medicine; Visit Provider Internal Medicine Gastroenterology
PROC: 0DJD8ZZ Inspection of Lower Intestinal Tract, Via Natural or Artificial Opening Endoscopic (ICD-10-PCS; CPT 45378; principal; 2023-10-02 07:30)
DX: R19.5 Other fecal abnormalities (principal); D12.2 Benign neoplasm of ascending colon; D12.4 Benign neoplasm of descending colon; D12.5 Benign neoplasm of sigmoid colon; D12.8 Benign neoplasm of rectum
CPT/HCPCS: 45385

== ENCOUNTER 2023-10-02 07:29 | Outpatient (NON) | payer MEDICARE, SELFPAY | END 2023-10-02 07:30 | disposition home or self-care (01) | PROVIDERS: PCP Family Medicine; Visit Provider Internal Medicine Gastroenterology | DX: R19.5 Other fecal abnormalities (principal); D12.5 Benign neoplasm of sigmoid colon; D12.2 Benign neoplasm of ascending colon; D12.4 Benign neoplasm of descending colon; K62.1 Rectal polyp | CPT/HCPCS: 88305 ==

== ENCOUNTER 2023-10-06 17:57 | Emergency (ER) | payer MEDICARE, SELFPAY ==
--- NOTE | ~2023-10-06 | XR_ITS ---
XR chest 2V 10/06/2023 18:55 Indication: Chest pain Procedure: 2 view chest Comparison: 09/30/2014 Findings: No focal air space disease, pulmonary edema, pleural effusion or suspected pneumothorax. No acute osseous abnormality. Impression: 1: No acute cardiopulmonary disease. Reviewed, dictated and finalized at location A. TRIC CAR OPERATOR Impression: 1: No acute cardiopulmonary disease.
--- NOTE | 2023-10-06 17:58 | ECG_ITS ---
Measurements Intervals [place] Rate: 95 P: -58 [place]: 132 QRS: 2 QRSD: 101 T: 60 QT: 348 QTc: 438 Interpretive Statements SINUS RHYTHM MINIMAL ST DEPRESSION [0.025+ mV ST DEPRESSION] ABNORMAL RHYTHM ECG NO PREVIOUS ECG AVAILABLE FOR COMPARISON Electronically Signed On 10-07-2023 13:26:28 BOAT DETAILER by Amrita Anna M.D.
[2023-10-06 18:10] VITALS: BP 167/67; PULSE 99; RESP 18; TEMP 37.2; O2SAT 94
[2023-10-06 18:18] LABS: Basophils Percent Auto 0.3 % (0.2-1.2); Eosinophils Absolute Auto 0.1 K/mm3 (0-0.3); Eosinophils Percent Auto 0.5 % (0-4.4); Hematocrit 47.4 % (42.0-52.0); Hemoglobin 15.2 g/dL (14.0-18.0); Immature Granulocyte Percent A 0.9 % (0-0.5); Lymphocytes Percent Auto 23.7 % (18.3-44.2); Mean Corpuscular HGB Conc 32.1 g/dl (32-36); Mean Corpuscular Hemoglobin 30.8 pg (26-34); Monocytes Absolute Auto 0.9 K/mm3 (0.1-0.6); Monocytes Percent Auto 8.4 % (2.6-8.5); Neutrophils Absolute Auto 7.3 K/mm3 (1.3-6.7); Neutrophils Percent Auto 66.2 % (45.5-73.1); Platelet Count Result 285 k/mm3 (150-375); Red Blood Count 4.94 M/mm3 (4.6-6.20); Red Cell Distribution Width 13.4 % (11.5-14.5)
[2023-10-06 18:27] LABS: INR 1.1; Prothrombin Time 14.7 Seconds (11.1-14.7)
[2023-10-06 18:28] LABS: Partial Thromboplastin Time 31.9 SECONDS (22.3-36.8)
[2023-10-06 18:34] LABS: Alanine Aminotransferase 295 U/L (6-50); Albumin Level 4.1 g/dL (3.5-5.1); Alkaline Phosphatase 171 U/L (38-126); Anion Gap 10 mmol/L (8-16); Aspartate Amino Transferase 334 U/L (17-59); Bilirubin,Total 3.1 mg/dL (0.2-1.3); Blood Urea Nitrogen 29 mg/dL (9-20); Calcium 9.4 mg/dL (8.4-10.2); Carbon Dioxide 28 mmol/L (22-30); Chloride 102 mmol/L (98-107); Estimated CRCL calculation 54 ml/min; Estimated Glomerular Filt Rate > 60; Glucose 143 mg/dL (65-110); Lipase 59 U/L (23-300); Potassium 3.6 mmol/L (3.4-5.0); Sodium 140 mmol/L (137-145)
[2023-10-06 18:46] LABS: Troponin I < 0.012 ng/mL (0.000-0.034)
--- NOTE | 2023-10-07 00:45 | PC.NURSE ---
Patient and family upset about wait time and left department to go somewhere else. When asked if patient was leaving, family states, yeah unless you are going to get him a room . This RN apologized and informed family that there were no rooms available at this time. Patient and family then walked out
== END 2023-10-07 00:45 | disposition left against medical advice (07) ==
LOC: ANHED 10-07 00:52
PROVIDERS: Emergency Provider Emergency Medicine; PCP Family Medicine
DX: R07.9 Chest pain, unspecified (principal)
CPT/HCPCS: 36415; 71046; 80053; 83690; 84484; 85025; 85610; 85730; 93005; 99199

== ENCOUNTER 2023-10-07 13:36 | Inpatient (IN) | payer MEDICARE, SELFPAY ==
[2023-10-07] VITALS (33 sets, daily range): BP systolic 100–157; BP diastolic 45–82; PULSE 76–112; RESP 16–35; TEMP 36.4–37.7; O2SAT 89–95; BMI 34.9
--- NOTE | ~2023-10-07 | CT_ITS ---
EXAMINATION: CT abdomen pelvis w con DATE: 10/07/2023 15:00 INDICATION: Abdominal pain. Chest pain. TECHNIQUE: Computed tomography (CT) of the abdomen and pelvis was performed with 100 mL Omnipaque 350 intravenous contrast. Automated exposure control and iterative reconstruction technique were employe d. The dose-length product was 1273.30 mGy-cm. COMPARISON: CT abdomen and pelvis 12/24/2016 FINDINGS: The visualized portions of the lung bases demonstrate mild atelectasis. Calcified left lung nodules are consistent with old granulomatous disease. No pleural effusion. The heart size is normal . No pericardial effusion. There are calcifications of aortic valve. There is mild intrahepatic bilia ry duct dilatation. The common duct is dilated to 12 mm. There is a stone in the common bile duct. Th ere are changes of cholecystectomy. There is fat stranding in the gallbladder fossa. There is a diver ticulum of the second portion of the duodenum. Calcifications in the spleen are consistent with old g ranulomatous disease. There is a small sliding hiatal hernia. The pancreas, adrenal glands, and kidne ys are normal. The prostate is mildly enlarged. There are bilateral inguinal hernias containing fat. There is diverticulosis of the colon without evidence of diverticulitis. The appendix is normal. Ther e are no dilated loops of bowel. There is a mildly enlarged right common iliac node, likely reactive. Aortic atherosclerosis is noted. There is no free intraperitoneal fluid. There is mild periportal ly mphadenopathy. There is mild thoracic spondylosis and severe lumbar spondylosis. There is mild chroni c height loss of T7 vertebral body. IMPRESSION: 1. Choledocholithiasis with mild intrahepatic and extrahepatic biliary duct dilatation. Fat stranding in the gallbladder fossa, consistent with inflammation. 2. Small sliding hiatal hernia. 3. Mild lymphadenopathy, likely reactive. Reviewed, dictated and finalized at location E. HING MACHINE ENGINEER IMPRESSION: 1. Choledocholithiasis with mild intrahepatic and extrahepatic biliary duct dil atation. Fat stranding in the gallbladder fossa, consistent with inflammation. 2. Small sliding hiatal hernia. 3. Mild lymphadenopathy, likely reactive.
--- NOTE | ~2023-10-07 | MR_ITS ---
EXAMINATION: MR MRCP wo/w con/w 3D wo ind DATE: 10/07/2023 18:55 INDICATION: Common bile duct stone. TECHNIQUE: Magnetic resonance imaging (MRI) of the abdomen was performed without and with 20 mL Multi Esther intravenous contrast. Sequences included coronal T2-weighted FS FSE, coronal T2-weighted FSE, a xial T1-weighted LAVA, coronal FS FIESTA, axial dual-echo T1-weighted SPGR, coronal lava-FLEX, sagitt al T2-weighted FSE, axial T2-weighted FSE, and axial DWI. Thick-slab T2-weighted FSE images were obta ined for magnetic resonance cholangiopancreatography (MRCP). Maximum intensity projection 3-D reconst ructions of the volumetric data were created by the technologist. Postcontrast sequences included cor onal LAVA-flex and time course of axial T1-weighted LAVA. COMPARISON: MRCP 08/24/2015, CT abdomen and pelvis 10/07/2023 FINDINGS: ABDOMEN MRI: There is diffuse hepatic steatosis. There is mild intrahepatic biliary duct dilatation. There are changes of cholecystectomy. There is a small sliding hiatal hernia. The spleen, pancreas, a drenal glands, and kidneys are normal. There are no dilated loops of bowel. There are no pathological ly enlarged lymph nodes. There is no free intraperitoneal fluid. There is fat stranding around the po rta hepatis, consistent with inflammation. ABDOMEN MRCP: The common duct is dilated to 12 mm. There is an 8 mm stone in the common bile duct. IMPRESSION: 1. Mild intrahepatic and extrahepatic biliary duct dilatation with 8 mm stone in the common bile duct . Reviewed, dictated and finalized at location E. E MAKER IMPRESSION: 1. Mild intrahepatic and extrahepatic biliary duct dilatation with 8 mm stone i n the common bile duct.
--- NOTE | ~2023-10-07 | XR_ITS ---
EXAMINATION: XR ERCP DATE: 10/08/2023 13:13 INDICATION: Choledocholithiasis. TECHNIQUE: A single spot fluoroscopic image of the right upper quadrant were obtained during endoscop ic retrograde cholangiopancreatography (ERCP). Fluoroscopy exposure time was 6 seconds. COMPARISON: MRCP 10/07/2023 FINDINGS: The endoscope tip is in the duodenum. Surgical clips in the right upper quadrant are likely from cholecystectomy. IMPRESSION: 1. Endoscope in the duodenum. Please refer to the ERCP procedure note for additional details. Reviewed, dictated and finalized at location E. D WELFARE ASSISTANT IMPRESSION: 1. Endoscope in the duodenum. Please refer to the ERCP procedure note for addit ional details.
[2023-10-07 14:39] LABS: Basophils Percent Auto 0.3 % (0.2-1.2); Eosinophils Percent Auto 0.2 % (0-4.4); Hematocrit 45.7 % (42.0-52.0); Hemoglobin 14.9 g/dL (14.0-18.0); Immature Granulocyte Absolute 0.06 K/mm3 (0.00-0.031); Immature Granulocyte Percent A 0.6 % (0-0.5); Lymphocytes Absolute Auto 2.48 K/mm3 (0.9-3.2); Lymphocytes Percent Auto 25.5 % (18.3-44.2); Mean Corpuscular HGB Conc 32.6 g/dl (32-36); Mean Platelet Volume 8.6 fl (7.4-10.4); Monocytes Absolute Auto 0.1 K/mm3 (0.1-0.6); Monocytes Percent Auto 1.3 % (2.6-8.5); Neutrophils Percent Auto 72.1 % (45.5-73.1); Platelet Count Result 272 k/mm3 (150-375); Red Blood Count 4.81 M/mm3 (4.6-6.20); Red Cell Distribution Width 13.4 % (11.5-14.5); White Blood Count 9.7 K/mm3 (4.5-10.0)
[2023-10-07 14:43] LABS: Appearance Urine Clear (Clear); Bacteria Urine None Seen /hpf; Bilirubin Urine 3+ (Negative); Blood Urine Trace (Negative); Color Urine Dark Yellow (Yellow); Glucose Urine UA Negative (Negative); Hyaline Casts Urine Present /lpf; Ketones Urine Negative (Negative); Leukocyte Esterase Ur Trace LEU/UL (Negative); Need Manual Microscopic Reviewed; Nitrate Urine Positive (Negative); Protein Urine 2+ mg/dL (Negative); Specific Grav Ur 1.018 (1.001-1.035); Squamous Epithelial Cell Urine Moderate /hpf (Few); WBC Urine 0-5 /hpf
[2023-10-07] MEDS: SODIUM CHLORIDE 0.9% IV 1,000 ML 999 ML IV CONT (14:43)
[2023-10-07] MEDS: ONDANSETRON INJ 4 MG/2 ML VIAL IV PUSH (14:44)
[2023-10-07] MEDS: FAMOTIDINE 20 MG/2 ML VIAL IV PUSH ×2 (14:44→21:46)
[2023-10-07] MEDS: MORPHINE SULFATE (*CRX) 2 MG/ML INJ IV PUSH (14:46)
[2023-10-07 14:50] LABS: Alanine Aminotransferase 318 U/L (6-50); Albumin Level 4.1 g/dL (3.5-5.1); Alkaline Phosphatase 204 U/L (38-126); Anion Gap 12 mmol/L (8-16); Aspartate Amino Transferase 257 U/L (17-59); Bilirubin,Total 7.2 mg/dL (0.2-1.3); Blood Urea Nitrogen 31 mg/dL (9-20); Calcium 9.1 mg/dL (8.4-10.2); Carbon Dioxide 25 mmol/L (22-30); Chloride 102 mmol/L (98-107); Estimated CRCL calculation 55 ml/min; Estimated Glomerular Filt Rate > 60; Glucose 109 mg/dL (65-110); Lipase 51 U/L (23-300); Potassium 3.5 mmol/L (3.4-5.0); Sodium 139 mmol/L (137-145)
--- NOTE | 2023-10-07 14:52 | ED.NAVMDI ---
HPI - Nausea/Vomiting/Diarrhea General Chief complaint: Nausea/Vomiting/Diarrhea Stated complaint: shakes/nausea Time Seen by Provider: 10/07/23 14:26 History of Present Illness HPI Narrative: patient presents the emergency department with persistent right upper quadrant pain and vomiting for the past few days. He was in the emergency department yesterday and waited hours for a room. Left prior to being seen by a provider. Patient was unable to sleep last night per his . Patient appears uncomfortable and is tachycardic. Slightly jaundiced Related Data Home Medications Medication Instructions Recorded Confirmed multivitamin 1 tablet PO DAILY 01/01/22 10/02/23 glucosamine sulfate 1,000 mg 1,000 mg PO DAILY 07/15/23 10/02/23 capsule tumeric 100 mg-livier 150 mg-olive 1 cap PO DAILY 07/15/23 10/02/23 50 mg-oreg 150 mg-caprylate capsule Allergies Allergy/AdvReac Type Severity Reaction Status Date / Time No Known Allergies Allergy Unknown Verified 10/02/23 06:17 Review of Systems Review of Systems: negative except what is documented in the HPI [facility] Past Medical History Medical History BPH w/o urinary obs/LUTS Chronic low back pain Chronic venous insufficiency of lower extremity Dyslipidemia Essential (primary) hypertension Melanoma of left congregational (~2010) UGI bleed (~2001) Vitamin D deficiency Surgical History Surgical History History of basal cell carcinoma excision (~04/24/23) excision of basal cell carcinoma of the right auricular sulcus History of cholecystectomy (~2014) 08/2015 History of incisional hernia repair 01/2017 Family History Family History Mother Patient's mother is in good health Father Patient's father is in good health Other Family history of hypercholesterolemia Hypertension Social History Social History Smoking packs per day: 1 Smoking cigarettes per day: 20.0 Years smoked: 62 Smoking pack-years: 62.00 Smoking status: Former smoker Tobacco type: cigarettes Second hand tobacco smoke exposure: No Smoking end date: 10/20/14 Additional smoking assessment comments: quit 5 years ago Alcohol intake: current Alcohol use details: ONE DRINK PER MONTH Substance use: never Substance use type: does not use Lack of Transportation: No Lack of Food: Never True Current Housing: I Have Housing Concerned About Future Housing: No Difficulty Paying Gas/Electric Bills: No Difficulty Paying for Meds: No Currently Unemployed: No Difficulty w/ Childcare or Family Care: No Living arrangements: with family Occupation/Education: retired Gender identity (if verbalized by the patient): Male Sexual Orientation (if Verbalized by the Patient): Straight or Heterosexual Spiritual care concerns: No Agree to blood products: Yes Exam Narrative: GENERAL: Well-appearing, well-nourished, uncomfortable HEAD: Normocephalic, atraumatic. EYES: PERRLA and EOMI. ENT: Nares clear, no rhinorrhea or epistaxis. Mucous membranes moist. NECK: Supple. CHEST: Clear to auscultation. No respiratory distress. HEART: Regular rate and rhythm. ABDOMEN: Soft, mild distension, right upper quadrant tenderness EXTREMITIES: Normal range of motion. No edema. SKIN: Warm, dry, no rash. NEURO: No focal deficits. Alert and oriented x3. PSYCH: Normal mood and affect. Course Vital Signs Vital signs: Vital Signs Temperature 37.7 C H 10/07/23 13:40 Pulse Rate 112 H 10/07/23 13:40 Respiratory Rate 20 10/07/23 13:40 Blood Pressure 149/81 H 10/07/23 13:40 Pulse Oximetry 91 10/07/23 13:40 Oxygen Delivery Room Air 10/07/23 13:40 Temperature 37.7 C H 10/07/23 13:40 Pulse Rate 102 H 10/07/23
[2023-10-07 14:54] LABS: Add Urine Microscopic? YES
[2023-10-07 15:49] LABS: Lactic Acid Reflex 2.1 mmol/L (0.7-2.0)
[2023-10-07 15:49] LABS: INR 1.3; Prothrombin Time 16.7 Seconds (11.1-14.7)
[2023-10-07 15:50] LABS: Partial Thromboplastin Time 29.7 SECONDS (22.3-36.8)
[2023-10-07] MEDS: PIPERACILLIN/TAZ 4.5G/NS 100ML 4.5 GM/100 ML BAG IVPB ×2 (15:56→23:07)
[2023-10-07 16:01] LABS: Troponin I 0.014 ng/mL (0.000-0.034)
[2023-10-07 16:14] LABS: Influenza A QL RT-PCR Negative (Negative); Influenza B QL RT-PCR Negative (Negative); RSV RNA, RT-PCR Negative (Negative); SARS-CoV-2 RNA PCR Negative (Negative)
--- NOTE | 2023-10-07 16:56 | WPDGICN ---
Assessment and Plan Assessment and plan (1) Choledocholithiasis: Code(s): K80.50 - Calculus of bile duct without cholangitis or cholecystitis without obstruction Status: Acute Assessment and Plan: Patient with common bile duct gallstone now with jaundice and abdominal pain. To be symptomatic. He has had a cholecystectomy many years ago. Plan for ERCP. We will keep him on broad-spectrum antibiotic coverage. Follow LFTs in the interim. Further recommendations may be given after ERCP. GI Consult Note Consult date/time: 10/07/23 16:56 Reason for consult: Choledocholithiasis HPI: Justin Wilson is a 83 year old male I am asked to see at the request of the emergency room because of common bile duct gallstone. Patient has a history of cholecystectomy many years ago. He was seen earlier this week for screening colonoscopy and found to have several benign colon polyps. Over the last week after the colonoscopy developed heartburn. The last time he had heartburn was at the time is gallbladder was inflamed. Antacids failed to alleviate the heartburn. He began to have rather severe abdominal pain and had a chill yesterday. This prompted him to go to the emergency room. Laboratory test was obtained however he left the emergency room because it took too long for him to be seen. Today the pain returned and he presented to the emergency room. Laboratory testing reveals that he now has jaundice. CT scan suggest common bile duct gallstone. Patient currently is comfortable. He did receive a pain shot earlier in the day. His family history is noncontributory. Review of Systems Review of Systems: Review of systems noncontributory. [facility] Past Medical History Medical History BPH w/o urinary obs/LUTS Chronic low back pain Chronic venous insufficiency of lower extremity Dyslipidemia Essential (primary) hypertension Melanoma of left hindu (~2010) UGI bleed (~2001) Vitamin D deficiency Surgical History Surgical History History of basal cell carcinoma excision (~04/24/23) excision of basal cell carcinoma of the right auricular sulcus History of cholecystectomy (~2014) 08/2015 History of incisional hernia repair 01/2017 Family History Family History Mother Patient's mother is in good health Father Patient's father is in good health Other Family history of hypercholesterolemia Hypertension Social History Social History Smoking packs per day: 1 Smoking cigarettes per day: 20.0 Years smoked: 62 Smoking pack-years: 62.00 Smoking status: Former smoker Tobacco type: cigarettes Second hand tobacco smoke exposure: No Smoking end date: 10/20/14 Additional smoking assessment comments: quit 5 years ago Alcohol intake: current Alcohol use details: ONE DRINK PER MONTH Substance use: never Substance use type: does not use Lack of Transportation: No Lack of Food: Never True Current Housing: I Have Housing Concerned About Future Housing: No Difficulty Paying Gas/Electric Bills: No Difficulty Paying for Meds: No Currently Unemployed: No Difficulty w/ Childcare or Family Care: No Living arrangements: with family Occupation/Education: retired Gender identity (if verbalized by the patient): Male Sexual Orientation (if Verbalized by the Patient): Straight or Heterosexual Spiritual care concerns: No Agree to blood products: Yes Meds Home Medications and Allergies Home Medications Medication Instructions Recorded Confirmed Type multivitamin 1 tablet PO DAILY 01/01/22 10/02/23 History amlodipine 5 mg tablet 5 mg PO DAILY #90 tabs 03/31/23 10/02/23 Rx enalapril 10 1 tablet PO DAILY #90 tabs 05/13/23 10/02/23 R
--- NOTE | 2023-10-07 17:18 | PM.IMHP ---
H&P: HPI History of Present Illness Date/Time: 10/07/23 17:18 Chief Complaint: N/V, Abdominal Pain Narrative: 83 y/o M presents here with upper abdominal pain, N/V, and heart burn with PMH of cholecystectomy, BPH, venous insufficiency of BLE, dyslipidemia, HTN, melanoma of left scientologist s/p excision, and vitamin D deficiency. Patient's provided majority of history with patient's permission, patient attempting to rest. per , patient has been complaining of constant heartburn since colonoscopy on , 10/02. They kept in contact with GI, who recommended milk of magnesia without resolution of heartburn. due to persistence of symptoms, patient elected to be evaluated in the emergency department yesterday, 10/06. ultimately left before treatment/ evaluation was completed due to wait times. Patient continued to feel worse and woke up in the middle of the night with pain in his upper abdomen, primarily on the right and it was accompanied by nausea, chills, and shaking . ED workup revealed a normal white count, no deviation in renal function, mildly elevated lactic acid at 2.1, increase in total bilirubin from 3.1-7.2, elevated LFTs and alk-phos. CT showed choledocholithiasis with mild intrahepatic and extrahepatic by Lester duct dilation with fat stranding in the gallbladder fossa consistent with inflammation. MRCP was ordered and GI to consult. MRCP showed 8 mm stone in the common bile duct. Review of Systems Review of Systems: All systems reviewed & are unremarkable except as noted in HPI and below PMFSH Past Medical History Medical History BPH w/o urinary obs/LUTS Chronic low back pain Chronic venous insufficiency of lower extremity Dyslipidemia Essential (primary) hypertension Melanoma of left scientologist (~2010) UGI bleed (~2001) Vitamin D deficiency Surgical History Surgical History History of basal cell carcinoma excision (~04/24/23) excision of basal cell carcinoma of the right auricular sulcus History of cholecystectomy (~2014) 08/2015 History of incisional hernia repair 01/2017 Family History Family History Mother Patient's mother is in good health Father Patient's father is in good health Heart attack Other Family history of hypercholesterolemia Hypertension Social History Social History Smoking packs per day: 1 Smoking cigarettes per day: 20.0 Years smoked: 62 Smoking pack-years: 62.00 Smoking status: Former smoker Tobacco type: cigarettes Second hand tobacco smoke exposure: No Smoking end date: 10/20/14 Additional smoking assessment comments: quit 5 years ago Alcohol intake: current Alcohol use details: ONE DRINK PER MONTH Substance use: never Substance use type: does not use Do You Feel Safe in your Home?: Yes Lack of Transportation: No Lack of Food: Never True Current Housing: I Have Housing Concerned About Future Housing: No Difficulty Paying Gas/Electric Bills: No Difficulty Paying for Meds: No Currently Unemployed: No Education: High School Diploma/GED Difficulty w/ Childcare or Family Care: No Living arrangements: with family Occupation/Education: retired Gender identity (if verbalized by the patient): Male Sexual Orientation (if Verbalized by the Patient): Straight or Heterosexual Spiritual care concerns: No Agree to blood products: Yes Meds Home Medications and Allergies Home Medications Medication Instructions Recorded Confirmed Type multivitamin 1 tablet PO DAILY 01/01/22 10/07/23 History amlodipine 5 mg tablet 5 mg PO DAILY #90 tabs 03/31/23 10/07/23 Rx enalapril 10 1 tablet PO DAILY #90 tabs 05/13/23 10/07/23 Rx mg-hydrochlorothiazide 25 mg tablet simvastat
[2023-10-07 17:55] LABS: INR 1.3; Prothrombin Time 17.3 Seconds (11.1-14.7)
[2023-10-07 18:07] LABS: Bilirubin Direct 3.7 mg/dL (0-0.3); Bilirubin,Total 6.2 mg/dL (0.2-1.3)
[2023-10-07 18:35] LABS: Reflex Lactic Acid Yes or No Add Lactic
[2023-10-07 18:42] LABS: Troponin I 0.036 ng/mL (0.000-0.034)
--- NOTE | 2023-10-07 18:48 | PC.NURSE ---
pt to MRI @174 and back @8293
--- NOTE | 2023-10-07 18:49 | ECG_ITS ---
Measurements Intervals [place] Rate: 94 P: -23 [place]: 158 QRS: -12 QRSD: 116 T: 46 QT: 356 QTc: 447 Interpretive Statements SINUS RHYTHM BASELINE ARTIFACT MODERATE INTRAVENTRICULAR CONDUCTION DELAY [110+ ms QRS DURATION] ABNORMAL ECG COMPARED TO ECG 10/06/2023 18:03:47 INTRAVENTRICULAR CONDUCTION DELAY NOW PRESENT Electronically Signed On 10-08-2023 15:35:37 DATA ARCHITECT by Raudel Huang M.D.
[2023-10-07 19:16] LABS: Lactic Acid 1.6 mmol/L (0.7-2.0)
--- NOTE | 2023-10-07 21:30 | ECG_ITS ---
Measurements Intervals [place] Rate: 75 P: 27 ID: [id number] QRS: -14 QRSD: 111 T: 43 QT: 396 QTc: 443 Interpretive Statements SINUS RHYTHM BASELINE ARTIFACT CANNOT RULE OUT iNFERIOR MYOCARDIAL INFARCTION , PROBABLY OLD [30 ms Q WAVE IN II/aVF] ABNORMAL ECG COMPARED TO ECG 10/07/2023 18:55:03 NO SIGNIFICANT CHANGES Electronically Signed On 10-08-2023 15:39:21 CARGO HANDLER by Raudel Huang M.D.
--- NOTE | 2023-10-07 21:35 | ADMGEN ---
This patient, Justin Wilson, was admitted to Medical Room 346-01. Patient/family oriented to hospital policies and general routines including ID bracelet, bed and alarms, visiting hours, pain management, procedures, bathroom and other care routines, personal items, smoking policy, room service/diet, and visiting hours. Information on how to activate the Rapid Response Team has been discussed. Patient/Family are encouraged to report perceived risks to care and to ask questions if they do not understand what they are told or what they should do.
[2023-10-07 21:57] LABS: Troponin I 0.045 ng/mL (0.000-0.034)
[2023-10-07] MEDS: LACTATED RINGERS 1,000 ML 100 ML IV CONT (23:07)
[2023-10-08] VITALS (16 sets, daily range): BP systolic 98–153; BP diastolic 49–89; PULSE 64–85; RESP 16–25; TEMP 35.9–36.8; O2SAT 93–100
[2023-10-08] MEDS: ceFAZolin 1 GM/NS 50 ML 1 GM/50 ML BAG IVPB (03:30)
[2023-10-08 05:07] LABS: Basophils Percent Auto 0.2 % (0.2-1.2); Eosinophils Absolute Auto 0.1 K/mm3 (0-0.3); Eosinophils Percent Auto 0.4 % (0-4.4); Hemoglobin 12.1 g/dL (14.0-18.0); Immature Granulocyte Percent A 0.6 % (0-0.5); Lymphocytes Absolute Auto 2.42 K/mm3 (0.9-3.2); Lymphocytes Percent Auto 13.9 % (18.3-44.2); Mean Corpuscular HGB Conc 31.8 g/dl (32-36); Mean Corpuscular Hemoglobin 31.3 pg (26-34); Mean Corpuscular Volume 98.2 fl (80-100); Mean Platelet Volume 8.8 fl (7.4-10.4); Monocytes Absolute Auto 1.6 K/mm3 (0.1-0.6); Monocytes Percent Auto 9.1 % (2.6-8.5); Neutrophils Absolute Auto 13.2 K/mm3 (1.3-6.7); Neutrophils Percent Auto 75.8 % (45.5-73.1); Platelet Count Result 235 k/mm3 (150-375); Red Blood Count 3.87 M/mm3 (4.6-6.20); Red Cell Distribution Width 13.7 % (11.5-14.5); White Blood Count 17.4 K/mm3 (4.5-10.0)
[2023-10-08 05:19] LABS: Alanine Aminotransferase 213 U/L (6-50); Albumin Level 3.1 g/dL (3.5-5.1); Alkaline Phosphatase 133 U/L (38-126); Anion Gap 4 mmol/L (8-16); Aspartate Amino Transferase 123 U/L (17-59); Blood Urea Nitrogen 31 mg/dL (9-20); Calcium 8.2 mg/dL (8.4-10.2); Carbon Dioxide 33 mmol/L (22-30); Chloride 104 mmol/L (98-107); Estimated CRCL calculation 44 ml/min; Estimated Glomerular Filt Rate 49; Glucose 113 mg/dL (65-110); Lipase 23 U/L (23-300); Magnesium 1.9 mg/dL (1.6-2.3); Phosphorus 3.7 mg/dL (2.5-4.5); Sodium 141 mmol/L (137-145)
[2023-10-08] MEDS: PIPERACILLIN/TAZ 4.5G/NS 100ML 4.5 GM/100 ML BAG IVPB ×3 (05:25→21:00)
[2023-10-08] MEDS: FAMOTIDINE 20 MG/2 ML VIAL IV PUSH ×2 (08:28→20:16)
[2023-10-08] MEDS: LACTATED RINGERS 1,000 ML 150 ML IV CONT (11:47)
--- NOTE | 2023-10-08 12:11 | WPDANESEPPF ---
Anes - Initial Pre Proc Eval Procedure: Operation Date: 10/08/23 12:30 Proposed Procedures p Endoscopic Retro Cholangiopancreatogram - Jerry Kam MD Date/Time: 10/08/23 12:11 Surgeon: Roseline Almazan DO Pre Op Diagnosis: Choledocholithiasis Patient Data Age: 83 Gender: M Height: 1.73 m Weight: 104.3 kg Last Vital Signs Temp 35.9 C L 10/08/23 11:49 Pulse 72 10/08/23 11:49 Resp 22 H 10/08/23 11:49 BP 122/89 10/08/23 11:49 Pulse Ox 97 10/08/23 11:49 O2 Del Method Nasal Cannula 10/08/23 11:49 O2 Flow Rate 3 10/08/23 11:49 Allergies Allergy/AdvReac Type Severity Reaction Status Date / Time No Known Allergies Allergy Unknown Verified 10/08/23 11:48 Home Medications Medication Instructions Recorded Confirmed Type multivitamin 1 tablet PO DAILY 01/01/22 10/07/23 History amlodipine 5 mg tablet 5 mg PO DAILY #90 tabs 03/31/23 10/07/23 Rx enalapril 10 1 tablet PO DAILY #90 tabs 05/13/23 10/07/23 Rx mg-hydrochlorothiazide 25 mg tablet simvastatin 40 mg tablet 40 mg PO QHS #100 tabs 06/10/23 10/07/23 Rx glucosamine sulfate 1,000 mg 1,000 mg PO DAILY 07/15/23 10/07/23 History capsule tumeric 100 mg-livier 150 mg-olive 1 cap PO DAILY 07/15/23 10/07/23 History 50 mg-oreg 150 mg-caprylate capsule Laboratory Tests 10/07/23 10/07/23 10/07/23 14:16 15:17 15:17 WBC 9.7 K/mm3 (4.5-10.0) RBC 4.81 M/mm3 (4.6-6.20) Hgb 14.9 g/dL (14.0-18.0) Hct 45.7 % (42.0-52.0) MCV 95.0 fl (80-100) MCH 31.0 pg (26-34) MCHC 32.6 g/dl (32-36) RDW 13.4 % (11.5-14.5) Plt Count 272 k/mm3 (150-375) MPV 8.6 fl (7.4-10.4) Immature Gran % (Auto) 0.6 H % (0-0.5) Neut % (Auto) 72.1 % (45.5-73.1) Lymph % (Auto) 25.5 % (18.3-44.2) [place] % (Auto) 1.3 L % (2.6-8.5) Eos % (Auto) 0.2 % (0-4.4) Baso % (Auto) 0.3 % (0.2-1.2) Lymph # (Auto) 2.48 K/mm3 (0.9-3.2) [place] # (Auto) 0.1 K/mm3 (0.1-0.6) Eos # (Auto) 0.0 K/mm3 (0-0.3) Baso # (Auto) 0.0 K/mm3 (0.0-0.1) Abs Immat Gran (auto) 0.06 H K/mm3 (0.00-0.031) Absolute Neuts (auto) 7.0 H K/mm3 (1.3-6.7) Absolute Nucleated RBC 0.0 K/mm3 (0.0-0.012) Nucleated RBC % 0.0 % (0.0-0.2) PT Cancelled 16.7 H Seconds (11.1-14.7) INR Cancelled APTT Sodium 139 mmol/L (137-145) Potassium 3.5 mmol/L (3.4-5.0) Chloride 102 mmol/L (98-107) Carbon Dioxide 25 mmol/L (22-30) Anion Gap 12 mmol/L (8-16) BUN 31 H mg/dL (9-20) Creatinine 1.10 mg/dL (0.7-1.3) Estim Creat Clear Calc 55 ml/min Estimated GFR > 60 (59 - ) Glucose 109 mg/dL (65-110) Lactic Acid Calcium 9.1 mg/dL (8.4-10.2) Phosphorus Magnesium Total Bilirubin 7.2 H mg/dL (0.2-1.3) Direct Bilirubin Indirect Bilirubin AST 257 H U/L (17-59) ALT 318 H U/L (6-50) Alkaline Phosphatase 204 H U/L (38-126) Troponin I Total Protein 8.0 g/dL (6.3-8.2) Albumin 4.1 g/dL (3.5-5.1) Lipase 51 U/L (23-300) Urine Color Dark yellow (Yellow) Urine Appearance Clear (Clear) Urine pH 6.0 (5.0-9.0) Ur Specific [place] 1.018 (1.001-1.035) Urine Protein 2+ H mg/dL (Negative) Urine Glucose (UA) Negative mg/dL (Negative) Urine Ketones Negative mg/dL (Negative) Ur Blood (Man) Trace (Negative) Urine Nitrate Positive H (Negative) Urine Bilirubin 3+ H (Negative) Urine Urobilinogen 2.0 H mg/dL (<2.0) Add Ur Microanal
[2023-10-08 13:21] LABS: Alanine Aminotransferase 216 U/L (6-50); Alkaline Phosphatase 139 U/L (38-126); Aspartate Amino Transferase 123 U/L (17-59); Bilirubin Direct 0.8 mg/dL (0-0.3); Bilirubin,Total 2.8 mg/dL (0.2-1.3)
--- NOTE | 2023-10-08 15:39 | PM.IMPN ---
Progress Note: A&P Assessment and Plan (1) Choledocholithiasis: Code(s): K80.50 - Calculus of bile duct without cholangitis or cholecystitis without obstruction Status: Acute Assessment and Plan: LFTs, alk phos and total bili elevated on admission, Will trend CT abd/pelvis showed: choledocholithiasis with mild intrahepatic and extrahepatic biliary duct dilatation. Fat stranding in the gallbladder fossa, consistent with inflammation. Small sliding hiatal hernia. Mild lymphadenopathy, likely reactive. MRCP showed mild intrahepatic and extrahepatic biliary duct dilatation with 8 mm stone in the common bile duct. Has history of cholecystectomy approximately 4 years ago. GI has been consulted, Eddy KELLY who attempted ERCP but unable due to diverticulosis blocking access will need tertiary center for ERCP to retrieve the stone from the duct BC prelim showed gram negative bacilli - continue with Zosyn for coverage (2) Elevated troponin: Code(s): R79.89 - Other specified abnormal findings of blood chemistry Status: Acute Assessment and Plan: 10/06: troponin <0.012 10/07: troponin 0.014 -> 0.036 -> 0.045. EKG repeated and showed no changes from prior suspect some level of demand ischemia/hypoperfusion. tele monitoring Plan Home Meds/Chronic Conditions - HLD: hold statin - OTC/supplements: Hold all. - HTN: Hold amlodipine, enalapril- hydrochlorothiazide. BP mildly soft. Diet: clear liquid, advance to low fat GI Prophylaxis: famotidine 20 IVP q.daily DVT Prophylaxis: SCDs, hold pharmacological Lines: pIV Code Status: Full Code Subjective Date/time seen: 10/08/23 15:39 Interval history: Patient is sitting up in the chair this morning on exam without complaint. He is in no distress and reports improvement in his abdominal pain. Dr. Kam with GI attempted an ERCP, but diverticulosis was present and blocking access to the stone. Recommended ERCP at a tertiary facility. Will start on liquids and advance to low fat diet. Continue Zosyn for AB coverage of initial prelim gram negative BC results. Will monitor LFTs and await GI recommendations for further management. Review of Systems Review of Systems: All systems reviewed & are unremarkable except as noted in HPI and below Exam Const: General: comfortable and no acute distress Other: NC in place. mild ill-appearance. HENMT: Face/Nose/Sinus: Normal nares present Mouth: Yes moist mucous membranes Eyes: General: appearance normal, both eyes and all related structures Pupils: Equal, round and reactive pupils present EOM: EOMs intact bilaterally Other: trace jaundice appearance to periorbital region without icterus. Neck: Neck: supple Resp: Effort & Inspection: normal respiratory effort Auscultation: clear to auscultation bilaterally Cardio: Rate: regular rate Rhythm: regular rhythm GI: Auscultation: normal bowel sounds Other: Rounded abdomen, mildly firm. Skin: General skin exam: normal color and no rashes or lesions noted Wounds: no wounds Other: Dry appearance to bilateral upper extremities. Neuro: Cranial nerves: Yes Equal, round and reactive pupils present Speech: normal speech Sensory Exam: normal sensation Other: A/Ox4 Extrem: Other: +1 pitting edema to BLE. Psych: Mental Status: mental status grossly normal Affect: normal affect Other: good insight and judgement. Objective Data Vital Signs Vital Signs: Vital Signs - 24 hr 10/07/23 15:45 10/07/23 15:47 10/07/23 16:00 Temperature Pulse Rate 92 93 92 Respiratory Rate 24 H 18 23 H Blood Pressure Pulse Oximetry 94 94 94 Oxygen Delivery Oxygen Flow Rate 10/07/23 16:01 10/07/23 16:15 10/07/23 16:16 Temperature Pulse Rate 91 92 92 Respiratory Rate 25 H 22 H 20 Blood Pressure 102/52 L 107/55 L Pulse Oximetry 94 94 94 Oxygen Delivery Oxygen Flow Rate
[2023-10-09] VITALS (9 sets, daily range): BP systolic 137–148; BP diastolic 60–62; PULSE 50–68; RESP 16–20; TEMP 36.3–36.8; O2SAT 94–95
[2023-10-09] MEDS: PIPERACILLIN/TAZ 4.5G/NS 100ML 4.5 GM/100 ML BAG IVPB ×4 (04:00→20:58)
[2023-10-09 05:12] LABS: Basophils Percent Auto 0.2 % (0.2-1.2); Hematocrit 40.8 % (42.0-52.0); Hemoglobin 12.8 g/dL (14.0-18.0); Immature Granulocyte Absolute 0.13 K/mm3 (0.00-0.031); Immature Granulocyte Percent A 1.1 % (0-0.5); Lymphocytes Absolute Auto 2.32 K/mm3 (0.9-3.2); Lymphocytes Percent Auto 19.2 % (18.3-44.2); Mean Corpuscular HGB Conc 31.4 g/dl (32-36); Mean Corpuscular Hemoglobin 30.8 pg (26-34); Mean Corpuscular Volume 98.1 fl (80-100); Monocytes Absolute Auto 0.7 K/mm3 (0.1-0.6); Neutrophils Absolute Auto 8.9 K/mm3 (1.3-6.7); Neutrophils Percent Auto 73.5 % (45.5-73.1); Platelet Count Result 255 k/mm3 (150-375); Red Blood Count 4.16 M/mm3 (4.6-6.20); Red Cell Distribution Width 13.4 % (11.5-14.5); White Blood Count 12.1 K/mm3 (4.5-10.0)
[2023-10-09 05:23] LABS: Alanine Aminotransferase 156 U/L (6-50); Albumin Level 3.3 g/dL (3.5-5.1); Alkaline Phosphatase 138 U/L (38-126); Anion Gap 6 mmol/L (8-16); Aspartate Amino Transferase 79 U/L (17-59); Bilirubin,Total 1.7 mg/dL (0.2-1.3); Blood Urea Nitrogen 24 mg/dL (9-20); Calcium 8.8 mg/dL (8.4-10.2); Carbon Dioxide 30 mmol/L (22-30); Chloride 105 mmol/L (98-107); Estimated CRCL calculation 55 ml/min; Estimated Glomerular Filt Rate > 60; Glucose 130 mg/dL (65-110); Potassium 4.1 mmol/L (3.4-5.0); Sodium 141 mmol/L (137-145)
--- NOTE | 2023-10-09 07:27 | P.PNAN_ITS ---
Anes - Prog Note Post-Op Date/Time: 10/09/23 07:27 Cardiovascular status: normal Respiratory status: normal Airway patency: baseline Mental status: baseline Post-Op hydration status: normal Vital Signs: Last Vital Signs Temp 98.2 F 10/08/23 22:00 Pulse 66 10/09/23 04:00 Resp 16 10/08/23 22:00 BP 149/70 H 10/08/23 22:00 Pulse Ox 93 10/08/23 22:00 O2 Del Method Nasal Cannula 10/08/23 14:12 O2 Flow Rate 2 10/08/23 14:12 Pain Score (VAS): 0 resting I/O: Intake & Output 10/08/23 10/08/23 10/09/23 15:59 23:59 07:59 Intake Total 300 1200 Balance 300 1200 Laboratory Tests 10/09/23 04:57 10/09/23 04:57 10/08/23 10/09/23 04:55 04:57 WBC 12.1 H RBC 4.16 L Hgb 12.8 L Hct 40.8 L MCV 98.1 MCH 30.8 MCHC 31.4 L RDW 13.4 Plt Count 255 MPV 9.0 Immature Gran % (Auto) 1.1 H Neut % (Auto) 73.5 H Lymph % (Auto) 19.2 [place] % (Auto) 6.0 Eos % (Auto) 0.0 Baso % (Auto) 0.2 Lymph # (Auto) 2.32 [place] # (Auto) 0.7 H Eos # (Auto) 0.0 Baso # (Auto) 0.0 Abs Immat Gran (auto) 0.13 H Absolute Neuts (auto) 8.9 H Absolute Nucleated RBC 0.0 Nucleated RBC % 0.0 Sodium 141 Potassium 4.1 Chloride 105 Carbon Dioxide 30 Anion Gap 6 L BUN 24 H Creatinine 1.10 Estim Creat Clear Calc 55 Estimated GFR > 60 Glucose 130 H Calcium 8.8 Total Bilirubin 2.8 H 1.7 H Direct Bilirubin 0.8 H 0.0 AST 123 H 79 H ALT 216 H 156 H Alkaline Phosphatase 139 H 138 H Total Protein 6.0 L 6.0 L Albumin 3.0 L 3.3 L Microbiology 10/07/23 15:27 Blood Blood Culture - Preliminary 10/07/23 15:30 Blood Blood Culture - Preliminary Gram negative bacilli isolated Post-procedural complaints: none Patient Feedback: Patient satisfied with anesthetic care.
--- NOTE | 2023-10-09 07:52 | ECG_ITS ---
Measurements Intervals [place] Rate: 65 P: FL: 0 QRS: 23 QRSD: 104 T: 42 QT: 423 QTc: 443 Interpretive Statements SINUS RHYTHM WITH FREQUENT PACS LOW QRS VOLTAGE IN EXTREMITY LEADS [QRS DEFLECTION < 0.5 mV IN LIMB LEADS] NONSPECIFIC T-WAVE ABNORMALITY ABNORMAL RHYTHM ECG COMPARED TO ECG 10/07/2023 22:15:43 NO DIFFERENCE Electronically Signed On 10-09-2023 17:45:30 [employer]OCKET ENGINE TESTER by Juan Diego Nguyen M.D.
[2023-10-09] MEDS: FAMOTIDINE 20 MG/2 ML VIAL IV PUSH ×2 (08:46→20:53)
[2023-10-09] MEDS: METOPROLOL TARTRATE INJ 5 MG/5 ML VIAL IV PUSH (09:55)
--- NOTE | 2023-10-09 14:09 | WPDGIPROGNO ---
Progress Note: A&P Assessment and Plan (1) Choledocholithiasis: Code(s): K80.50 - Calculus of bile duct without cholangitis or cholecystitis without obstruction Status: Acute Assessment and Plan: Patient with common bile duct gallstone noted on MRCP. Patient admitted with right upper quadrant pain and elevated LFTs. These have all gradually improved. Attempted ERCP was limited by periampullary diverticulum. It appears as though the ampulla likely is within this diverticulum. What appeared to be a gallstone was situated within the diverticula, raising the question that this may have passed spontaneously. Patient currently improving. I would recommend discharge removed outpatient follow-up at tertiary care center such as [facility] for more definitive ERCP to ensure clearance of the common bile duct. Okay with me for discharge. Patient should contact the GI office to arrange outpatient ERCP at [facility] , or [facility] as an outpatient. (2) Elevated LFTs: Code(s): R79.89 - Other specified abnormal findings of blood chemistry Status: Acute Assessment and Plan: LFTs noted on admission have gradually improved patient feeling well spontaneously suggesting no biliary obstruction at present. Plan for outpatient ERCP. Subjective Date/time seen: 10/09/23 14:09 Interval history: Patient alert comfortable this morning. Denies abdominal pain. Tolerating diet. Denies any fever. At anxious to go home. Review of Systems Review of Systems: Review of systems noncontributory. Exam Narrative: Physical exam reveals patient to be alert. Vital signs stable. HEENT exam reveals no icterus. Lungs are clear. Heart without murmur. Abdomen is obese. Bowel sounds are present soft nontender with no organomegaly. Objective Data Vital Signs Vital Signs: Vital Signs - 24 hr 10/08/23 14:12 10/08/23 16:00 10/08/23 20:00 Temperature 97.4 F L Pulse Rate 75 80 78 Respiratory Rate 20 Blood Pressure 131/51 L Pulse Oximetry 97 Oxygen Delivery Nasal Cannula Oxygen Flow Rate 2 10/08/23 22:00 10/09/23 04:00 10/09/23 06:00 Temperature 98.2 F 97.5 F L Pulse Rate 75 66 53 L Respiratory Rate 16 16 Blood Pressure 149/70 H 148/62 H Pulse Oximetry 93 94 Oxygen Delivery Oxygen Flow Rate 10/09/23 08:00 10/09/23 09:55 10/09/23 08:00 Temperature Pulse Rate 68 50 L Respiratory Rate Blood Pressure Pulse Oximetry Oxygen Delivery Room Air Oxygen Flow Rate 10/09/23 12:00 Temperature Pulse Rate 56 L Respiratory Rate Blood Pressure Pulse Oximetry Oxygen Delivery Oxygen Flow Rate Intake/Output Intake/Output: Intake & Output 10/06/23 10/07/23 10/08/23 10/09/23 23:59 23:59 23:59 23:59 Intake Total 1200 1650 1180 Output Total 675 500 Balance 1200 975 680 Meds/Results Medications: Active Medications Generic Name Dose Route Start Last Admin Trade Name Freq PRN Reason Stop Dose Admin Acetaminophen 650 mg 10/07/23 22:08 Acetaminophen 325 Mg Tablet PO Q4H PRN Mild Pain (1-3) or Fever Hydrocodone Bitart/Acetaminophen 1 tab 10/07/23 22:08 Hydrocodone/Acetaminophen (*Crx) 10-325 Mg Tablet PO Q6H PRN Pain Rated 7-10 Famotidine 20 mg 10/07/23 21:00 10/09/23 08:46 Famotidine 20 Mg/2 Ml Vial IV PUSH 20 mg Q12HR PAOLA Administration Piperacillin Sod/Tazobactam Sod 4.5 gm in 100 mls @ 200 mls/hr 10/08/23 00:00 10/09/23 09:56 Zosyn 4.5 Gm/Ns 100 Ml IVPB 200 mls/hr Q6H PAOLA Administration Morphine Sulfate 2 mg 10/07/23 22:08 Morphine Sulfate (*Crx) 2 Mg/Ml Inj IV PUSH Q4H PRN Pain Rated 7-10 Radiology Results: ITS Impressions Abdomen/Pelvis CT 10/07/23 15:13 IMPRESSION: 1. Choledocholithiasis with mild intrahepatic and extrahepatic biliary duct dilatation. Fat stranding in the gallbladder fossa, consistent with inflammation. 2. Small sliding hiatal her
--- NOTE | 2023-10-09 15:46 | PM.IMPN ---
Progress Note: A&P Assessment and Plan (1) Choledocholithiasis: Code(s): K80.50 - Calculus of bile duct without cholangitis or cholecystitis without obstruction Status: Acute Assessment and Plan: LFTs, alk phos and total bili elevated on admission, Will trend CT abd/pelvis showed: choledocholithiasis with mild intrahepatic and extrahepatic biliary duct dilatation. Fat stranding in the gallbladder fossa, consistent with inflammation. Small sliding hiatal hernia. Mild lymphadenopathy, likely reactive. MRCP showed mild intrahepatic and extrahepatic biliary duct dilatation with 8 mm stone in the common bile duct. Has history of cholecystectomy approximately 4 years ago. GI has been consulted, Eddy KELLY who attempted ERCP but unable due to diverticulosis blocking access will need tertiary center for ERCP to retrieve the stone from the duct BC prelim showed gram negative bacilli - continue with Zosyn for coverage tolerating low fat diet, GI cleared for d/c when stable (2) Elevated troponin: Code(s): R79.89 - Other specified abnormal findings of blood chemistry Status: Acute Assessment and Plan: 10/06: troponin <0.012 10/07: troponin 0.014 -> 0.036 -> 0.045. EKG repeated and showed no changes from prior suspect some level of demand ischemia/hypoperfusion. tele monitoring Plan Home Meds/Chronic Conditions - HLD: hold statin - OTC/supplements: Hold all. - HTN: Hold amlodipine, enalapril- hydrochlorothiazide. BP mildly soft. Diet: clear liquid, advance to low fat GI Prophylaxis: famotidine 20 IVP q.daily DVT Prophylaxis: SCDs, hold pharmacological Lines: pIV Code Status: Full Code Subjective Date/time seen: 10/09/23 15:46 Interval history: Patient had a rough start to the morning. Anesthesia caused some confusion overnight and patient became much more confused from his baseline. This morning he experienced some afib appearing patterns on his tele. 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 Resolved later this morning and patient cognition returned to A&O x3, although he still has moments of mild confusion. He is tolerating a low fat diet without pain. GI cleared for d/c and to follow up outpatient for ERCP in [facility]. Due to confusion this morning and pending BC results, will keep one more night and plan for d/c in the morning if remains stable. Review of Systems Review of Systems: All systems reviewed & are unremarkable except as noted in HPI and below Exam Const: General: comfortable and no acute distress HENMT: Face/Nose/Sinus: Normal nares present Mouth: Yes moist mucous membranes Eyes: General: appearance normal, both eyes and all related structures Pupils: Equal, round and reactive pupils present EOM: EOMs intact bilaterally Neck: Neck: supple Resp: Effort & Inspection: normal respiratory effort Auscultation: clear to auscultation bilaterally Cardio: Rate: regular rate Rhythm: regular rhythm GI: Auscultation: normal bowel sounds Skin: General skin exam: normal color and no rashes or lesions noted Wounds: no wounds Neuro: Cranial nerves: Yes Equal, round and reactive pupils present Speech: normal speech Sensory Exam: normal sensation Psych: Mental Status: mental status grossly normal Affect: normal affect Objective Data Vital Signs Vital Signs: Vital Signs - 24 hr 10/08/23 16:00 10/08/23 20:00 10/08/23 22:00 Temperature 98.2 F Pulse Rate 80 78 75 Respiratory Rate 16 Blood Pressure 149/70 H Pulse Oximetry 93 Oxygen Delivery 10/09/23 04:00 10/09/23 06:00 10/09/23 08:00 Temperature 97.5 F L Pulse Rate 66 53 L Respiratory Rate 16 Blood Pressure 148/62 H Pulse Oximetry 94 Oxygen Delivery Room Air 10/09/23 09:55 10/09/23 08:00 10/09/23 12:00 Temperature Pulse Rate 68 50 L 56 L Respiratory Rate Blood Pressure Pulse Oximetry O
--- NOTE | 2023-10-10 02:33 | PC.NURSE ---
Patient removed peripheral IV. Pt educated on importance of having an IV during hospital stay and that he is being treated with IV antibiotics for his infection. Pt refusing education at this time. notified that pt will miss 0400 dose of antibiotics.
[2023-10-10 06:00] VITALS: BP 155/55; PULSE 68; RESP 18; TEMP 36.6; O2SAT 96
[2023-10-10 06:02] LABS: Basophils Absolute Auto 0.1 K/mm3 (0.0-0.1); Basophils Percent Auto 0.6 % (0.2-1.2); Eosinophils Absolute Auto 0.1 K/mm3 (0-0.3); Eosinophils Percent Auto 1.1 % (0-4.4); Hematocrit 44.5 % (42.0-52.0); Hemoglobin 14.2 g/dL (14.0-18.0); Immature Granulocyte Percent A 1.7 % (0-0.5); Lymphocytes Absolute Auto 3.46 K/mm3 (0.9-3.2); Lymphocytes Percent Auto 28.6 % (18.3-44.2); Mean Corpuscular HGB Conc 31.9 g/dl (32-36); Mean Corpuscular Volume 97.2 fl (80-100); Monocytes Percent Auto 8.4 % (2.6-8.5); Neutrophils Absolute Auto 7.2 K/mm3 (1.3-6.7); Neutrophils Percent Auto 59.6 % (45.5-73.1); Platelet Count Result 299 k/mm3 (150-375); Red Blood Count 4.58 M/mm3 (4.6-6.20); Red Cell Distribution Width 13.6 % (11.5-14.5); White Blood Count 12.1 K/mm3 (4.5-10.0)
[2023-10-10 06:02] LABS: Alanine Aminotransferase 117 U/L (6-50); Albumin Level 3.7 g/dL (3.5-5.1); Alkaline Phosphatase 131 U/L (38-126); Anion Gap 8 mmol/L (8-16); Aspartate Amino Transferase 54 U/L (17-59); Bilirubin,Total 1.1 mg/dL (0.2-1.3); Blood Urea Nitrogen 32 mg/dL (9-20); Calcium 8.9 mg/dL (8.4-10.2); Carbon Dioxide 29 mmol/L (22-30); Chloride 107 mmol/L (98-107); Estimated CRCL calculation 55 ml/min; Estimated Glomerular Filt Rate > 60; Glucose 101 mg/dL (65-110); Lipase 128 U/L (23-300); Potassium 3.3 mmol/L (3.4-5.0); Sodium 144 mmol/L (137-145)
[2023-10-10 06:05] LABS: Bilirubin,Total 1.2 mg/dL (0.2-1.3)
[2023-10-10] MEDS: POTASSIUM CHLORIDE 20 MEQ PACKET (FOR LIQUID) 40 MEQ PO (08:38)
[2023-10-10] MEDS: AMOXICILLIN/CLAVULANATE K 875-125 MG TAB 1 TABLET PO (09:35)
--- NOTE | 2023-10-10 10:37 | PM.DS ---
DS: Admitting Diagnosis Discharge Date 10/10/23 Admitting Diagnosis choledocholithiasis DS: Discharge Diagnosis Discharge Diagnosis (1) Choledocholithiasis: Code(s): K80.50 - Calculus of bile duct without cholangitis or cholecystitis without obstruction Status: Acute Assessment and Plan: LFTs total bili improved, bilirubin is now WNL CT abd/pelvis showed: choledocholithiasis with mild intrahepatic and extrahepatic biliary duct dilatation. Fat stranding in the gallbladder fossa, consistent with inflammation. Small sliding hiatal hernia. Mild lymphadenopathy, likely reactive. MRCP showed mild intrahepatic and extrahepatic biliary duct dilatation with 8 mm stone in the common bile duct. Has history of cholecystectomy approximately 4 years ago. GI following, MD Eddy who attempted ERCP but unable due to diverticulosis blocking access will need tertiary center for ERCP to retrieve the stone from the duct BC prelim showed gram negative bacilli, positive for E.Coli - PO Augmentin at d/c for 10 day course tolerating low fat diet, GI cleared for d/c (2) Elevated troponin: Code(s): R79.89 - Other specified abnormal findings of blood chemistry Status: Acute Assessment and Plan: 10/06: troponin <0.012 10/07: troponin 0.014 -> 0.036 -> 0.045. EKG repeated and showed no changes from prior suspect some level of demand ischemia/hypoperfusion. discussed with cardiology, not concerned for further work up at this time DS: Summary Hospital Course Hospital Course: Patient is a 83 y/o M admitted with upper abdominal pain, N/V, and heart burn with PMH of cholecystectomy, BPH, venous insufficiency of BLE, dyslipidemia, HTN, melanoma of left druze s/p excision, and vitamin D deficiency. Patient had been complaining of constant heartburn since colonoscopy on 10/02. Patient continued to feel worse and woke up in the middle of the night with pain in his upper abdomen, primarily on the right and it was accompanied by nausea, chills, and shaking . ED workup revealed a normal white count, no deviation in renal function, mildly elevated lactic acid at 2.1, increase in total bilirubin from 3.1-7.2, elevated LFTs and alk-phos. CT showed choledocholithiasis with mild intrahepatic and extrahepatic by L[place] duct dilation with fat stranding in the gallbladder fossa consistent with inflammation. MRCP showed 8 mm stone in the common bile duct. GI unable to perform ERCP to remove the stone due to diverticulosis, and referred to tertiary care center in [facility] to be arranged outpatient. Patient liver enzymes and bilirubin began trending down on 10/08. Preliminary BC positive for E. coli, patient received Zosyn while inpatient and will be sent home with Augmentin for full 10 day course and will follow up with final results. Source likely from the gallbladder, but stable for d/c today. Status at Discharge Functional status at discharge: independent ambulation Overall status at discharge: patient is progressing back to baseline Time Spent with Patient Time attestation: Total time spent providing and/or coordinating discharge services: Exam Const: General: comfortable and no acute distress HENMT: Face/Nose/Sinus: Normal nares present Mouth: Yes moist mucous membranes Eyes: General: appearance normal, both eyes and all related structures Pupils: Equal, round and reactive pupils present EOM: EOMs intact bilaterally Neck: Neck: supple Resp: Effort & Inspection: normal respiratory effort Auscultation: clear to auscultation bilaterally Cardio: Rate: regular rate Rhythm: regular rhythm GI: Auscultation: normal bowel sounds Other: Rounded abdomen, mildly firm. Skin: General skin exam: normal color and no rashes or lesions noted Wounds: no wounds Neuro: Cranial nerves: Yes Equal, round and reactive pupils present Speech: normal speech Motor exam (neuro): 5/5 motor strength present throughout Sensory
--- NOTE | 2023-10-15 13:08 | PC.NURSE ---
Blood cx from anaerobic bottle growing E. Coli. Pt was dc on Amoxicillin which is susceptible.
== END 2023-10-10 10:34 | disposition home or self-care (01) | DRG 445 ==
LOC: ANHED 16:03 → ANH3MEDSUR 18:05 → ANH3MED 20:28
PROVIDERS: Internal Medicine Gastroenterology; Student in an Organized Health Care Education/Training Program; Admitting Provider Student in an Organized Health Care Education/Training Program; Emergency Provider Emergency Medicine; PCP Family Medicine; Visit Provider Nurse Practitioner
PROC: 0FJB8ZZ Inspection of Hepatobiliary Duct, Via Natural or Artificial Opening Endoscopic (ICD-10-PCS; CPT 43260; principal; 2023-10-08 12:30)
DX: K80.50 Calculus of bile duct without cholangitis or cholecystitis without obstruction (principal); I24.89 Other forms of acute ischemic heart disease; K57.10 Diverticulosis of small intestine without perforation or abscess without bleeding; B96.20 Unspecified Escherichia coli [E. coli] as the cause of diseases classified elsewhere; Z20.822 Contact with and (suspected) exposure to COVID-19; N40.0 Benign prostatic hyperplasia without lower urinary tract symptoms; E78.5 Hyperlipidemia, unspecified; E55.9 Vitamin D deficiency, unspecified; I10 Essential (primary) hypertension; I87.2 Venous insufficiency (chronic) (peripheral); E66.9 Obesity, unspecified; Z68.35 Body mass index [BMI] 35.0-35.9, adult; Z85.820 Personal history of malignant melanoma of skin; Z85.828 Personal history of other malignant neoplasm of skin; Z90.49 Acquired absence of other specified parts of digestive tract; Z87.891 Personal history of nicotine dependence
CPT/HCPCS: 36415; 74177; 74183; 74329; 76376; 80048; 80053; 80076; 81001; 82247; 82248; 83605; 83690; 83735; 84100; 84484; 85025; 85610; 85730; 87040; 87077; 87186; 87637; 93005; 96361; 96365; 96375; 99285; A9270; A9577; J0330; J0690; J1100; J2270; J2405; J2543; J2704; J7030; J7120; Q9966; Q9967

== ENCOUNTER 2023-11-05 08:32 | Outpatient (CLI) | payer MEDICARE, SELFPAY ==
--- NOTE | 2023-11-05 08:55 | ECHO_ITS ---
Patient Info Name: Justin Wilson Age: 83 years : 1940 Gender: Male Ht: 68 in Wt: 214 lbs BSA: 2.19 m2 HR: 78 bpm BP: 175 / 86 mmHg Technical Quality: Fair Exam Date: 11/05/2023 9:29 AM Exam Location: Echo Lab Patient Status: Outpatient Admit Date: 11/05/2023 Staff Ordering Physician: Juan Daniel Dash MD Forming Machine Tender: Tashia Ramirez RDCS Attending Provider: Juan Daniel Dash MD Exam Type: CA echo dop color flow w con Study Info Indications R06.02 - Shortness of breath Complete two-dimensional, color flow and Doppler transthoracic echocardiogram is performed with contrast to opacify the left ventricle and to improve the deliniation of the left ventricle endocardial borders. Contrast/Agitated Saline Contrast/Ag. Saline: Definity Amount: 1.00 ml Administered By: Tashia Ramirez [facility] IV Access Condition: patent with no signs of infiltration New IV Access: Left Site Condition: Site dressing applied and IV removed Summary 1. Definity contrast administered improved wall motion interpretation. 2. Left ventricular chamber dimension is normal. 3. Left ventricular systolic function is hyperdynamic, estimated at >70%. 4. The left ventricular diastolic function is grade I diastolic dysfunction. 5. E/e' 11 is mildly elevated. 6. The aortic valve is not well visualized. Cannot determine number of aortic valve leaflets. 7. There is mild to moderate aortic valve stenosis based on a valve area of 1.5 cm2 and mean gradient of 16 mmHg. 8. There is moderate aortic valve sclerosis. 9. There is mild aortic valve regurgitation. 10. There is trace tricuspid valve regurgitation. 11. Mild pulmonary hypertension, estimated pulmonary arterial systolic pressure is 41mmHg. Left Ventricle E/e' 11 is mildly elevated. Definity contrast administered improved wall motion interpretation. Left ventricular chamber dimension is normal. Left ventricular systolic function is hyperdynamic, estimated at >70%. The left ventricular diastolic function is grade I diastolic dysfunction. Right Ventricle Right ventricular chamber dimension is normal. Right ventricular systolic function is normal. Left Atria Left atrial chamber dimension is normal. Right Atria Right atrial chamber dimension is normal. Aortic Valve The aortic valve is not well visualized. Cannot determine number of aortic valve leaflets. There is mild to moderate aortic valve stenosis based on a valve area of 1.5 cm2 and mean gradient of 16 mmHg. There is moderate aortic valve sclerosis. There is mild aortic valve regurgitation. Pulmonic Valve There is no pulmonic regurgitation. Mitral Valve There is no mitral valve stenosis. There is no mitral valve regurgitation. Tricuspid Valve Mild pulmonary hypertension, estimated pulmonary arterial systolic pressure is 41mmHg. There is trace tricuspid valve regurgitation. Pericardium/Pleural There is no pericardial effusion. Inferior Vena Cava Normal inferior vena cava with >50% collapse upon inspiration consistent with normal right atrial pressure, 5 mmHg. Aorta The aortic root size at the sinus of Valsalva is normal. Left Ventricular Outflow Tract Name Value Normal LVOT 2D LVOT Diameter 2.10 cm LVOT Doppler
[2023-11-05] MEDS: PERFLUTREN LIPID MICROSPHERES 1.5 ML VIAL DILUTED TO 10 ML TOTAL VOLUME IV PUSH (09:30)
--- NOTE | 2023-11-05 12:29 | IVDEFINITY ---
Prior to administration of IV Definity the patient was educated on the risks and benefits of the imaging enhancing agent including potential adverse side effects. The patient verbalized understanding. Allergies were verified. No exclusion criteria were identified and at least one of the following inclusion criteria were met: 1) physician request, 2) patient technically difficult to image (per the [place] [employer] guidelines of two or more segments not discernable within the apical view), or 3) questionable left ventricular function. ?
--- NOTE | 2023-11-05 13:23 | WPDPFTINT ---
PFT Procedure Performed PFT Procedure Performed Spirometry with Pre/Post Bronchodilator Plethysmography (Lung Vol) Diffusing Cap (DLCO) Flow Vol Loop PFT Interpretation Lung volumes were measured with the body plethysmography method. Lung volumes are unremarkable. Spirometry showed diminished expiratory flow rates and a diminished FEV1 to FVC ratio 58% consistent with mild obstructive airway disease. Following administration of a bronchodilator there was no significant increase in expiratory flow rates. Lung diffusion capacity is mildly reduced at 66% predicted. The flow-volume loop is consistent with obstructive airway disease. Impression: Mild obstructive airway disease with no response to bronchodilators on this testing. Mild reduction in lung diffusion capacity.
== END 2023-11-05 08:33 | disposition home or self-care (01) ==
LOC: ANHCARD 08:35
PROVIDERS: PCP Family Medicine; Visit Provider Family Medicine
DX: R93.1 Abnormal findings on diagnostic imaging of heart and coronary circulation (principal); I35.0 Nonrheumatic aortic (valve) stenosis; I35.8 Other nonrheumatic aortic valve disorders; I35.1 Nonrheumatic aortic (valve) insufficiency; I07.1 Rheumatic tricuspid insufficiency; I27.20 Pulmonary hypertension, unspecified; I10 Essential (primary) hypertension
CPT/HCPCS: 94060; 94726; 94729; C8929; Q9957

== ENCOUNTER 2023-11-20 10:35 | Emergency (ER) | payer MEDICARE, SELFPAY ==
--- NOTE | ~2023-11-20 | XR_ITS ---
XR chest 2V DATE: 11/20/2023 12:19 INDICATION: Shortness of breath, cough. History of COPD. TECHNIQUE: PA and lateral views COMPARISON: 10/06/2023 2 view chest FINDINGS: Heart size is within normal range. No hilar or mediastinal enlargement. There is old granul omatous disease. No pulmonary infiltrate or consolidation, pleural effusion or pulmonary vascular congestion or pneumo thorax is evident. Diffuse idiopathic skeletal hyperostosis of the thoracic spine. Osteopenia. IMPRESSION: No active cardiopulmonary disease or significant change since 10/06/2023 Reviewed, dictated and finalized at location L. EYBALL COMMENTATOR
[2023-11-20 11:26] VITALS: BP 121/61; PULSE 96; RESP 16; TEMP 37.1; O2SAT 94
--- NOTE | 2023-11-20 11:58 | ED.URI ---
HPI - URI/Sore Throat General Chief Complaint: Upper Respiratory Infection Stated Complaint: HEAD & CHEST CONGESTION/COUGH Time Seen by Provider: 11/20/23 11:58 Source: patient, RN notes reviewed and old records reviewed Mode of arrival: ambulatory Limitations: no limitations History of Present Illness HPI Narrative: 83-year-old male presents to the [facility] with complaints head congestion, chest congestion and a cough that started 2 days ago. States he tried using his albuterol this morning Denies any other treatment Son states that he arrived with a cold on Friday, patient started with symptoms on Friday. Treatments prior to arrival: none Related Data Home Medications Medication Instructions Recorded Confirmed multivitamin 1 tablet PO DAILY 01/01/22 11/20/23 Allergies Allergy/AdvReac Type Severity Reaction Status Date / Time morphine AdvReac Other Verified 11/20/23 11:42 Review of Systems Review of Systems: All systems reviewed & are unremarkable except as noted in HPI and below Constitutional: Constitutional: Reports no additional constitutional complaints Eyes: Eyes: Reports no additional eye complaints ENT: Reports as per HPI Cardiovascular: Cardiovascular: Reports no additional cardiovascular complaints, Denies chest pain and Denies dyspnea Respiratory: Respiratory: Reports as per HPI, Reports chest congestion, Reports cough and Denies dyspnea Gastrointestinal: Gastrointestinal: Reports no additional gastrointestinal complaints, Denies abdominal pain, Denies nausea and Denies vomiting Musculoskeletal: Musculoskeletal: Reports no additional musculoskeletal complaints Integumentary/Breasts: Skin/Breast: Reports system reviewed and no additional complaints, except as docu Neurologic: Reports system reviewed and no additional complaints, except as documented Psychiatric: Psychiatric: Reports no additional psychiatric complaints Allergic/Immunologic: Allergic/Immunologic: Reports no additional allergic/immunologic complaints [facility] Past Medical History Medical History BPH w/o urinary obs/LUTS Chronic low back pain Chronic venous insufficiency of lower extremity Dyslipidemia Essential (primary) hypertension Melanoma of left christian (~2010) UGI bleed (~2001) Vitamin D deficiency Surgical History Surgical History History of basal cell carcinoma excision (~04/24/23) excision of basal cell carcinoma of the right auricular sulcus History of cholecystectomy (~2014) 08/2015 History of incisional hernia repair 01/2017 Family History Family History Mother Patient's mother is in good health Father Patient's father is in good health Heart attack Other Family history of hypercholesterolemia Hypertension Social History Social History Smoking packs per day: 1 Smoking cigarettes per day: 20.0 Years smoked: 62 Smoking pack-years: 62.00 Smoking status: Former smoker Tobacco type: cigarettes Second hand tobacco smoke exposure: No Smoking end date: 10/20/14 Additional smoking assessment comments: quit 5 years ago Alcohol intake: current Alcohol use details: ONE DRINK PER MONTH Substance use: never Substance use type: does not use Do You Feel Safe in your Home?: Yes Lack of Transportation: No Lack of Food: Never True Current Housing: I Have Housing Concerned About Future Housing: No Difficulty Paying Gas/Electric Bills: No Difficulty Paying for Meds: No Currently Unemployed: No Education: High School Diploma/GED Difficulty w/ Childcare or Family Care: No Living arrangements: with family Occupation/Education: retired Gender identity (if verbalized by the patient): Male Sexual Orientation (if Verbalized by
== END 2023-11-20 12:38 | disposition home or self-care (01) ==
PROVIDERS: Emergency Provider Nurse Practitioner; PCP Family Medicine
DX: J40 Bronchitis, not specified as acute or chronic (principal); J44.1 Chronic obstructive pulmonary disease with (acute) exacerbation; Z20.822 Contact with and (suspected) exposure to COVID-19; Z87.891 Personal history of nicotine dependence; N40.0 Benign prostatic hyperplasia without lower urinary tract symptoms; E78.5 Hyperlipidemia, unspecified; I87.2 Venous insufficiency (chronic) (peripheral); Z85.828 Personal history of other malignant neoplasm of skin
CPT/HCPCS: 71046; 87426; 87804; 99213; G0463

== ENCOUNTER 2024-01-13 09:59 | Outpatient (CLI) | payer MEDICARE, SELFPAY ==
[2024-01-13 14:28] LABS: Alanine Aminotransferase 22 U/L (6-50); Alkaline Phosphatase 83 U/L (38-126); Anion Gap 4 mmol/L (4-12); Aspartate Amino Transferase 68 U/L (17-59); Bilirubin,Total 0.6 mg/dL (0.2-1.3); Blood Urea Nitrogen 28 mg/dL (9-20); Calcium 9.7 mg/dL (8.4-10.2); Carbon Dioxide 32 mmol/L (22-30); Chloride 105 mmol/L (98-107); Estimated Glomerular Filt Rate > 60; Glucose 104 mg/dL (65-110); Potassium 4.2 mmol/L (3.4-5.0); Sodium 141 mmol/L (137-145)
[2024-01-13 18:26] LABS: Hemoglobin A1C 5.9 % (<5.7)
== END 2024-01-13 10:00 | disposition home or self-care (01) ==
PROVIDERS: PCP Family Medicine; Visit Provider Family Medicine
DX: R73.9 Hyperglycemia, unspecified (principal); I10 Essential (primary) hypertension
CPT/HCPCS: 36415; 80053; 83036

== ENCOUNTER 2024-03-22 15:30 | Emergency (ER) | payer MEDICARE, SELFPAY ==
[2024-03-22 15:35] VITALS: BP 135/61; PULSE 73; RESP 16; O2SAT 96
--- NOTE | 2024-03-22 15:45 | ED.MALEGU ---
HPI - Male Genitourinary General Chief complaint: Urogenital-Male Stated complaint: Uti Symptoms Time Seen by Provider: 03/22/24 15:45 Source: patient Mode of arrival: ambulatory Limitations: no limitations History of Present Illness HPI Narrative: 83-year-old male presents with complaint of urinary frequency, urgency, incontinence for the past 4 days. Afebrile. Denies nausea vomiting. No pain. No history of urinary tract infections. All systems reviewed and negative except as noted above. Related Data Home Medications Medication Instructions Recorded Confirmed multivitamin 1 tablet PO DAILY 01/01/22 03/22/24 glucosamine sulfate 2KCl 1,000 mg 1,000 mg PO DAILY 01/13/24 03/22/24 tablet Allergies Allergy/AdvReac Type Severity Reaction Status Date / Time morphine AdvReac Other Verified 03/22/24 16:10 Review of Systems Review of Systems: CONSTITUTIONAL: Denies fever, chills, or sweats. EYES: Denies visual changes, redness, or discharge. ENT: Denies rhinorrhea, congestion, sore throat, or otalgia. CARDIOVASCULAR: Denies chest pain, palpitations, or edema. RESPIRATORY: Denies cough or dyspnea. GASTROINTESTINAL: Denies abdominal pain, nausea, vomiting, or diarrhea. GENITOURINARY: Denies dysuria or hematuria. Reports urinary frequency, urgency, incontinence. SKIN: Denies rash or itching. MUSCULOSKELETAL: Denies back pain, joint pain, or myalgia. NEUROLOGIC: Denies headache, numbness, or weakness. PSYCHIATRIC: Denies anxiety or depression. All other systems reviewed are negative, except as documented in HPI. [facility] Past Medical History Medical History Basal cell carcinoma of skin BPH w/o urinary obs/LUTS Chronic low back pain Chronic venous insufficiency of lower extremity COPD (chronic obstructive pulmonary disease) Dyslipidemia Essential (primary) hypertension History of colon polyps History of melanoma Melanoma of left faith (~2010) UGI bleed (~2001) Vitamin D deficiency Surgical History Surgical History History of basal cell carcinoma excision (~04/24/23) excision of basal cell carcinoma of the right auricular sulcus History of cholecystectomy (~2014) 08/2015 History of incisional hernia repair 01/2017 Family History Family History Mother Patient's mother is in good health Father Patient's father is in good health Heart attack Other Family history of hypercholesterolemia Hypertension Social History Social History Smoking packs per day: 1 Smoking cigarettes per day: 20.0 Years smoked: 62 Smoking pack-years: 62.00 Smoking status: Former smoker Tobacco type: cigarettes Second hand tobacco smoke exposure: No Smoking end date: 10/20/14 Additional smoking assessment comments: quit 5 years ago Alcohol intake: current Alcohol use details: ONE DRINK PER MONTH Substance use: never Substance use type: does not use Do You Feel Safe in your Home?: Yes Lack of Transportation: No Lack of Food: Never True Current Housing: I Have Housing Concerned About Future Housing: No Difficulty Paying Gas/Electric Bills: No Difficulty Paying for Meds: No Currently Unemployed: No Education: High School Diploma/GED Difficulty w/ Childcare or Family Care: No Living arrangements: with family Occupation/Education: retired Gender identity (if verbalized by the patient): Male Sexual Orientation (if Verbalized by the Patient): Straight or Heterosexual Spiritual care concerns: No Agree to blood products: Yes Comments At time of signature, agree with nursing past medical, surgical, social and family history. There is no relevant family history pertinent to the presenting complaint. Exam Narrative: GENERAL
== END 2024-03-22 16:15 | disposition home or self-care (01) ==
PROVIDERS: Emergency Provider Nurse Practitioner Family; PCP Family Medicine
DX: R35.0 Frequency of micturition (principal); Z87.891 Personal history of nicotine dependence; N40.0 Benign prostatic hyperplasia without lower urinary tract symptoms; J44.9 Chronic obstructive pulmonary disease, unspecified; E78.5 Hyperlipidemia, unspecified; I10 Essential (primary) hypertension; E55.9 Vitamin D deficiency, unspecified; Z85.828 Personal history of other malignant neoplasm of skin; Z85.820 Personal history of malignant melanoma of skin
CPT/HCPCS: 81003; 87086; 99213; G0463

== ENCOUNTER 2024-07-20 09:18 | Outpatient (CLI) | payer MEDICARE, SELFPAY ==
[2024-07-20 14:06] LABS: Basophils Absolute Auto 0.1 K/mm3 (0.0-0.1); Basophils Percent Auto 0.8 % (0.2-1.2); Eosinophils Absolute Auto 0.4 K/mm3 (0-0.3); Eosinophils Percent Auto 3.1 % (0-4.4); Hematocrit 47.5 % (42.0-52.0); Hemoglobin 15.3 g/dL (14.0-18.0); Immature Granulocyte Absolute 0.08 K/mm3 (0.00-0.031); Immature Granulocyte Percent A 0.6 % (0-0.5); Lymphocytes Absolute Auto 4.84 K/mm3 (0.9-3.2); Lymphocytes Percent Auto 38.5 % (18.3-44.2); Mean Corpuscular HGB Conc 32.2 g/dl (32-36); Mean Corpuscular Hemoglobin 32.1 pg (26-34); Mean Corpuscular Volume 99.6 fl (80-100); Mean Platelet Volume 9.7 fl (7.4-10.4); Monocytes Absolute Auto 0.9 K/mm3 (0.1-0.6); Monocytes Percent Auto 6.8 % (2.6-8.5); Neutrophils Absolute Auto 6.3 K/mm3 (1.3-6.7); Neutrophils Percent Auto 50.2 % (45.5-73.1); Platelet Count Result 268 k/mm3 (150-375); Red Blood Count 4.77 M/mm3 (4.6-6.20); Red Cell Distribution Width 13.8 % (11.5-14.5); White Blood Count 12.6 K/mm3 (4.5-10.0)
[2024-07-20 14:20] LABS: Alanine Aminotransferase 23 U/L (6-50); Albumin Level 4.2 g/dL (3.5-5.1); Alkaline Phosphatase 69 U/L (38-126); Anion Gap 7 mmol/L (4-12); Aspartate Amino Transferase 72 U/L (17-59); Bilirubin,Total 0.6 mg/dL (0.2-1.3); Blood Urea Nitrogen 33 mg/dL (9-20); Calcium 9.1 mg/dL (8.4-10.2); Carbon Dioxide 32 mmol/L (22-30); Chloride 103 mmol/L (98-107); Cholesterol 160 mg/dL (0-200); Estimated Glomerular Filt Rate > 60; Glucose 102 mg/dL (65-110); HDL Direct 29 mg/dL; Potassium 4.2 mmol/L (3.4-5.0); Sodium 142 mmol/L (137-145); Triglycerides 155 mg/dL (<150)
[2024-07-20 14:31] LABS: LDL Cholesterol Direct 90 mg/dL
[2024-07-20 14:45] LABS: Vitamin D 25 Hydroxy 47.5 ng/mL
[2024-07-20 14:50] LABS: Prostate Specific Antigen 3.6 ng/mL (< OR = 4.0)
[2024-07-20 16:08] LABS: Hemoglobin A1C 5.7 % (<5.7)
== END 2024-07-20 09:19 | disposition home or self-care (01) ==
PROVIDERS: PCP Family Medicine; Visit Provider Family Medicine
DX: I10 Essential (primary) hypertension (principal); R73.9 Hyperglycemia, unspecified; Z12.5 Encounter for screening for malignant neoplasm of prostate; E78.5 Hyperlipidemia, unspecified; E55.9 Vitamin D deficiency, unspecified; E53.8 Deficiency of other specified B group vitamins
CPT/HCPCS: 36415; 80053; 80061; 82306; 82607; 83036; 84153; 84443; 85025; G0103

== ENCOUNTER 2024-08-10 10:39 | Outpatient (RCR) | payer MEDICARE, SELFPAY ==
--- NOTE | 2024-08-10 12:43 | OPREHPOC ---
Outpatient Therapy Plan of Care This is a Multidisciplinary Plan of Care that may contain components documented by all disciplines (PT, OT, and ST.)
--- NOTE | 2024-08-10 12:43 | PTOPEVDC ---
Assessment and note entered by Gil Cruz, PT Thank you for referring Justin Wilson to [facility].? An evaluation has been completed. No further treatment is needed. Evaluation Information Assessment Status Evaluation Diagnosis Chronic pain ICD-10 Condition Codes (PT) Pain in low back M54.50 Onset 2022 Subjective Information Reports that the most pain he has is after mowing his 2 acre yard. He notes some ache in shoulder when using it for ADLs. Unsure where the pains are coming from at this time. Reports that he was told to come to therapy from his doctor, but he is unsure if he really needs to because pain is so sporadic. He has been contemplating getting a gym membership and working out in the pool. Reports that when he has pain a shower helps. He is stiff when he gets out of bed in the morning. When he is really hurting, walking causes him the biggest issue. Denies any consistent pain. Reported Pain Level Pain Score 0: Self Report Assessment PT Clinical Summary Patient presents with occasional pain with ambulation and sit to stand activity. We noted ROM loss in jef hips coupled with weakness. HEPO was issued and patient was instructed in self care. At this time patient is electing to perform HEP and initiate water aerobics with his . He requested not to partake in therapy regimen as the pain is sporadic at this time and it is no longer mowing season. Patient will be discharged at this time with education and HEP.
== END 2024-08-16 14:47 | disposition home or self-care (01) ==
LOC: ANHGOSHPT 10:39
PROVIDERS: PCP Family Medicine; Visit Provider Family Medicine
DX: M54.50 Low back pain, unspecified (principal); G89.29 Other chronic pain
CPT/HCPCS: 97110; 97161

== ENCOUNTER 2025-01-19 11:43 | Outpatient (CLI) | payer OTHER, SELFPAY ==
[2025-01-19 13:15] LABS: Alanine Aminotransferase 29 U/L (6-50); Albumin Level 4.4 g/dL (3.5-5.1); Alkaline Phosphatase 74 U/L (38-126); Anion Gap 11 mmol/L (4-12); Aspartate Amino Transferase 71 U/L (17-59); Bilirubin,Total 0.6 mg/dL (0.2-1.3); Blood Urea Nitrogen 31 mg/dL (9-20); Calcium 9.3 mg/dL (8.4-10.2); Carbon Dioxide 29 mmol/L (22-30); Chloride 104 mmol/L (98-107); Estimated Glomerular Filt Rate > 60; Glucose 106 mg/dL (65-110); Potassium 4.4 mmol/L (3.4-5.0); Sodium 144 mmol/L (137-145)
[2025-01-19 14:31] LABS: Hemoglobin A1C 5.6 % (<5.7)
== END 2025-01-19 11:44 | disposition home or self-care (01) ==
LOC: ANHGOSHLAB 11:44
PROVIDERS: PCP Family Medicine; Visit Provider Family Medicine
DX: R73.03 Prediabetes (principal); I10 Essential (primary) hypertension
CPT/HCPCS: 36415; 80053; 83036

== ENCOUNTER 2025-07-21 07:59 | Outpatient (CLI) | payer OTHER, SELFPAY ==
[2025-07-21 13:02] LABS: Hematocrit 47.6 % (42.0-52.0); Hemoglobin 15.1 g/dL (14.0-18.0); Immature Granulocyte Percent A 0.6 % (0-0.5); Lymphocytes Absolute Auto 7.29 K/mm3 (0.9-3.2); Mean Corpuscular HGB Conc 31.7 g/dl (32-36); Mean Corpuscular Hemoglobin 30.8 pg (26-34); Mean Corpuscular Volume 97.1 fl (80-100); Nucleated Red Blood Cells Absolute Auto 0.000 K/mm3 (0.0-0.012); Nucleated Red Blood Cells Perc 0.0 % (0.0-0.2); Platelet Count Result 251 k/mm3 (150-375); Red Blood Count 4.90 M/mm3 (4.6-6.20); White Blood Count 14.3 K/mm3 (4.5-10.0)
[2025-07-21 13:13] LABS: Alanine Aminotransferase 24 U/L (6-50); Albumin Level 3.9 g/dL (3.5-5.1); Alkaline Phosphatase 81 U/L (38-126); Anion Gap 9 mmol/L (4-12); Aspartate Amino Transferase 134 U/L (17-59); Bilirubin,Total 0.5 mg/dL (0.2-1.3); Blood Urea Nitrogen 29 mg/dL (9-20); Calcium 9.0 mg/dL (8.4-10.2); Carbon Dioxide 30 mmol/L (22-30); Chloride 105 mmol/L (98-107); Cholesterol 144 mg/dL (0-200); Estimated Glomerular Filt Rate > 60; Glucose 96 mg/dL (65-110); HDL Direct 26 mg/dL; Potassium 3.7 mmol/L (3.4-5.0); Sodium 144 mmol/L (137-145); Total Protein 7.2 g/dL (6.3-8.2); Triglycerides 164 mg/dL (<150)
[2025-07-21 13:49] LABS: Prostate Specific Antigen 3.9 ng/mL (< OR = 4.0); Thyroid Stimulating Hormone Reflex 2.780 uIU/mL (0.465-4.68)
[2025-07-21 14:48] LABS: Vitamin B12 538.0 pg/mL (239-931)
[2025-07-21 16:18] LABS: Hemoglobin A1C 5.6 % (<5.7)
== END 2025-07-21 08:00 | disposition home or self-care (01) ==
LOC: ANHGOSHLAB 08:00
PROVIDERS: PCP Family Medicine; Visit Provider Family Medicine
DX: E78.5 Hyperlipidemia, unspecified (principal); R73.03 Prediabetes; Z12.5 Encounter for screening for malignant neoplasm of prostate; E53.8 Deficiency of other specified B group vitamins; I10 Essential (primary) hypertension; E55.9 Vitamin D deficiency, unspecified
CPT/HCPCS: 36415; 80053; 80061; 82306; 82607; 83036; 84153; 84443; 85025; G0103

== ENCOUNTER 2025-07-28 12:48 | Outpatient (CLI) | payer OTHER, SELFPAY ==
[2025-07-28 18:30] LABS: Alanine Aminotransferase 27 U/L (6-50); Albumin Level 4.2 g/dL (3.5-5.1); Alkaline Phosphatase 79 U/L (38-126); Anion Gap 9 mmol/L (4-12); Aspartate Amino Transferase 54 U/L (17-59); Bilirubin,Total 0.7 mg/dL (0.2-1.3); Blood Urea Nitrogen 29 mg/dL (9-20); Calcium 9.6 mg/dL (8.4-10.2); Carbon Dioxide 32 mmol/L (22-30); Chloride 102 mmol/L (98-107); Estimated Glomerular Filt Rate > 60; Glucose 115 mg/dL (65-110); Potassium 4.2 mmol/L (3.4-5.0); Sodium 143 mmol/L (137-145); Total Protein 7.5 g/dL (6.3-8.2)
== END 2025-07-28 12:49 | disposition home or self-care (01) ==
LOC: ANHGOSHLAB 12:48
PROVIDERS: PCP Nurse Practitioner Family; Visit Provider Nurse Practitioner Family
DX: R74.01 Elevation of levels of liver transaminase levels (principal)
CPT/HCPCS: 36415; 80053

== ENCOUNTER 2025-08-28 08:29 | Outpatient (CLI) | payer OTHER, SELFPAY ==
--- NOTE | ~2025-08-28 | MR_ITS ---
EXAMINATION: MR brain/brain stem wo con DATE: 08/28/2025 09:47 INDICATION: Other amnesia. TECHNIQUE: Magnetic resonance imaging (MRI) of the brain and brainstem was performed without intravenous contrast. COMPARISON: None. FINDINGS: Motion artifact is noted. There are scattered areas of nonspecific increased T2-weighted signal intensity in the cerebral white matter, which is within normal limits for the patient's age. There is no intracranial hemorrhage, acute infarction, or abnormal intracranial mass lesion. The ventricles are normal in size. The orbits are normal. There is mild mucosal thickening in the ethmoid sinuses. The mastoid air cells are normal. IMPRESSION: 1. Normal aging brain. Reviewed, dictated and finalized at location E. E OVER ANNOUNCER IMPRESSION: 1. Normal aging brain.
== END 2025-08-28 08:30 | disposition home or self-care (01) ==
PROVIDERS: PCP Nurse Practitioner Family; Visit Provider Nurse Practitioner Family
DX: R41.3 Other amnesia (principal)
CPT/HCPCS: 70551